=== PATIENT | male | born 1975 | race African-American/Black ===

== ENCOUNTER 2023-01-22 20:11 | Inpatient (IN) | payer SELFPAY ==
--- NOTE | ~2023-01-22 | CT_ITS ---
EXAMINATION: CT abdomen pelvis w con DATE: 01/22/2023 21:22 INDICATION: Left upper quadrant abdominal pain TECHNIQUE: Computed tomography (CT) of the abdomen and pelvis was performed with 100 CC Omnipaque 350 intravenous contrast. Automated exposure control and iterative reconstruction technique were employe d. Exam dose: 463.16 mGy-cm total exam DLP. COMPARISON: None. FINDINGS: Mild bilateral lower lobe atelectasis, primarily in the posteromedial left lower lobe. Normal heart size. No pericardial or pleural effusion. Small sliding hiatal hernia. Occasional up to 4.5 mm hepatic cysts. The gallbladder is unremarkable. No gallbladder wall thickenin g or pericholecystic fluid or fat stranding. No bile duct or pancreatic duct dilatation. No pancreati c mass lesion or calcification. There is a large geographic area of diminished attenuation of the spleen with relatively linear brian ns suggesting possible infarction. Normal morphology of the adrenal glands. There are several wedge shaped areas of diminished enhancement of the right kidney, which may indicat e right renal infarctions. Alternatively, acute pyelonephritis would be a consideration. There is scarring and volume loss of the upper pole right kidney suggests cyst with chronic right cyn lonephritis or past infarct. Occasional renal cysts, the largest on the right, measuring up to 14 mm. There is diffuse thickening of the urinary bladder wall, likely secondary to prostatomegaly. Cystitis is not excluded. Normal caliber of the abdominal aorta with minimal atherosclerotic change. No intraperitoneal or retr operitoneal or pelvic mass lesion or adenopathy or ascites is detected. Normal appendix. Diverticulosis of left and right colon; no evidence of diverticulitis. No bowel obstruction or intrap eritoneal free air is detected. Moderately severe degenerative disc disease L3-4. No suspicious osteolytic or osteoblastic lesions ar e noted. IMPRESSION: Large geographic area of diminished enhancement of the spleen suggesting infarct Infarcts versus acute pyelonephritis, right kidney Chronic pyelonephritis or infarct of upper pole right kidney Occasional small hepatic cysts Bilateral renal cysts Diverticulosis of the colon; no evidence of diverticulitis Normal appendix Small sliding hiatal hernia Bladder wall thickening which may be due to prostatomegaly; cystitis is not excluded Reviewed, dictated and finalized at [facility]. Reviewed, dictated and finalized at [facility]. IMPRESSION: Large geographic area of diminished enhancement of the spleen sugg esting infarct Infarcts versus acute pyelonephritis, right kidney Chronic pyelonephritis or infarct of upper pole right kidney Occasional small hepatic cysts Bilateral renal cysts Diverticulosis of the colon; no evidence of diverticulitis Normal appendix Small sliding hiatal hernia Bladder wall thickening which may be due to prostatomegaly; cystitis is not exc luded
--- NOTE | ~2023-01-22 | XR_ITS ---
XR chest 1V portable DATE: 01/22/2023 20:32 INDICATION: Left-sided pain TECHNIQUE: Portable upright AP chest on 01/22/2023 at 2031 hours COMPARISON: None FINDINGS: There is mild elevation left leaf of diaphragm and left lower lobe infiltrate/atelectasis. Remaining lung richards appear clear. Heart size appears within normal range. No hilar or mediastinal enlargement. No pleural effusion or p ulmonary vascular congestion or pneumothorax is detected. IMPRESSION: Left lower lobe infiltrate/atelectasis Reviewed, dictated and finalized at [facility].
[2023-01-22 20:13] VITALS: BP 137/77; PULSE 119; RESP 18; TEMP 36.7; O2SAT 99
--- NOTE | 2023-01-22 20:16 | ECG_ITS ---
Measurements Intervals [place] Rate: 54 P: 55 WA: 130 QRS: 48 QRSD: 99 T: 63 QT: 422 QTc: 404 Interpretive Statements SINUS BRADYCARDIA POSSIBLE LEFT ATRIAL ENLARGEMENT ST ELEVATION IN ANTERIOR LEADS- PROBABLY EARLY REPOLARIZATION ABNORMALITY BORDERLINE ST ABNORMALITY- HIGH LATERAL LEADS BORDERLINE ECG NO PREVIOUS ECG AVAILABLE FOR COMPARISON Electronically Signed On 01-23-2023 7:10:25 CDT by Xavi Sun D.O.
--- NOTE | 2023-01-22 20:16 | PC.NURSE ---
EKG completed at @[address] Yee
--- NOTE | 2023-01-22 20:32 | ED.GENADULT ---
HPI - General Adult General Chief complaint: Abdominal Pain Stated complaint: abdominal pain Time Seen by Provider: 01/22/23 20:15 History of Present Illness HPI narrative: This is a 47-year-old male presenting ED with a chief complaint of epigastric pain. Pain started acutely at 6:00 p.m. and is a sharp pain in the left upper quadrant. He says it radiates throughout his abdomen into his back. Ten out 10 intensity and constant. He has never experienced this pain before. Says it is better when he lies on his left side. No exacerbating symptoms. Patient says he is nauseous and tried to make himself vomit but was unsuccessful. He has had some chills. No chest pain difficulty breathing or diarrhea. Patient smokes a marijuana frequently. Related Data Allergies Allergy/AdvReac Type Severity Reaction Status Date / Time No Known Allergies Allergy Verified 01/22/23 20:50 Exam Narrative: APPEARANCE: patient is laying on his left side. he appears uncomfortable. Head: atraumatic. EYES: EOMI, NOSE: Atraumatic NECK: Trachea midline RESPIRATORY: No increased rate of breathing, clear to auscultation CARDIOVASCULAR: RRR, vital signs are noted 120 in triage on my exam his heart rate is 60. ABDOMINAL: abdomen is soft with tenderness in the epigastric area. L Cva tenderness MUSCULOSKELETAl: No obvious deformities NEURO: Alert. Moving 4/4 extremities SKIN:: Warm, dry. Normal color PSYCHIATRIC: Anxious Course Vital Signs Vital signs: Vital Signs Temperature 98.1 F 01/22/23 20:13 Pulse Rate 119 H 01/22/23 20:13 Respiratory Rate 18 01/22/23 20:13 Blood Pressure 137/77 01/22/23 20:13 Pulse Oximetry 99 01/22/23 20:13 Oxygen Delivery Room Air 01/22/23 20:13 Temperature 98.1 F 01/22/23 20:13 Pulse Rate 78 01/22/23 23:09 Respiratory Rate 15 01/22/23 23:09 Blood Pressure 148/83 H 01/22/23 23:09 Pulse Oximetry 98 01/22/23 23:09 Oxygen Delivery Room Air 01/22/23 20:13 Medical Decision Making [facility] Narrative Medical decision making narrative: -Presentation: 47-year-old male presenting with epigastric pain. There seems to be a strong anxiety component associated with his symptoms. Patient will be given symptomatic treatment. Lab work and CT abdomen pelvis have been ordered. -DDX includes but is not limited to: gastritis/PUD, splenic infarct, Cyclic vomiting, pyelonephritis -Co-morbidities complicating care: hypertension, frequent marijuana use -Social determinants of health: patient works at a [employer] the lives with his mother -External Chart Review: none -Hx from independent Sources: EMS report -Independent interpretation of studies: CBC showed white count of 14. Hemoglobin normal. Metabolic panel within normal limits. Chest x-ray atelectasis in left lower lobe. UA negative. CT abdomen pelvis: ?Large geographic area of diminished enhancement of the spleen suggesting infarct Infarcts versus acute pyelonephritis, right kidney Chronic pyelonephritis or infarct of upper pole right kidney Occasional small hepatic cysts Bilateral renal cysts Diverticulosis of the colon; no evidence of diverticulitis Normal appendix Small sliding hiatal hernia Bladder wall thickening which may be due to prostatomegaly; cystitis is not excluded patient given Dilaudid for pain control. Blood cultures ordered. Independent EKG interpretation: Rhythm [sinus], Rate [54], [place] -[normal], [place] -[normal], QRS [narrow], QTC [normal], T waves -[negative for concerning inversions], ST Segments - [Negative for concerning elevations] Final interpretations: Sinus Jacob -Discussion of Management/Consultants:Dr. Potter - Hospitalist -Dx tests considered but not ordered: none -Procedures: none -Interventions: 2 L normal saline, Pepcid, Zofran, Haldol, Dilaudid -Shared decision making / Disposition: patient will be admitted to hospital for management of his pain into evaluate f
[2023-01-22 20:39] LABS: Basophils Absolute Auto 0.1 K/mm3 (0.0-0.1); Basophils Percent Auto 0.4 % (0.2-1.2); Eosinophils Absolute Auto 0.1 K/mm3 (0-0.3); Eosinophils Percent Auto 0.6 % (0-4.4); Hematocrit 43.7 % (42.0-52.0); Hemoglobin 14.1 g/dL (14.0-18.0); Immature Granulocyte Absolute 0.06 K/mm3 (0.00-0.031); Immature Granulocyte Percent A 0.4 % (0-0.5); Lymphocytes Absolute Auto 2.26 K/mm3 (0.9-3.2); Mean Corpuscular HGB Conc 32.3 g/dl (32-36); Mean Platelet Volume 9.8 fl (7.4-10.4); Monocytes Absolute Auto 0.8 K/mm3 (0.1-0.6); Monocytes Percent Auto 5.7 % (2.6-8.5); Neutrophils Absolute Auto 10.8 K/mm3 (1.3-6.7); Neutrophils Percent Auto 76.9 % (45.5-73.1); Platelet Count Result 335 k/mm3 (150-375); Red Cell Distribution Width 13.2 % (11.5-14.5); White Blood Count 14.1 K/mm3 (4.5-10.0)
[2023-01-22 20:49] LABS: Alanine Aminotransferase 20 U/L (6-50); Albumin Level 4.3 g/dL (3.5-5.1); Alkaline Phosphatase 64 U/L (38-126); Anion Gap 6 mmol/L (8-16); Aspartate Amino Transferase 26 U/L (17-59); Bilirubin,Total 0.5 mg/dL (0.2-1.3); Blood Urea Nitrogen 23 mg/dL (9-20); Calcium 9.3 mg/dL (8.4-10.2); Carbon Dioxide 27 mmol/L (22-30); Chloride 105 mmol/L (98-107); Estimated Glomerular Filt Rate > 60; Glucose 106 mg/dL (65-110); Lipase 74 U/L (23-300); Magnesium 1.9 mg/dL (1.6-2.3); Potassium 4.1 mmol/L (3.4-5.0); Sodium 138 mmol/L (137-145)
[2023-01-22] MEDS: FAMOTIDINE 20 MG/2 ML VIAL IV PUSH (20:51)
[2023-01-22] MEDS: SODIUM CHLORIDE 0.9% IV 2,000 ML 999 ML IV CONT (20:51)
[2023-01-22] MEDS: ONDANSETRON INJ 4 MG/2 ML VIAL IV PUSH (20:51)
[2023-01-22] MEDS: HALOPERIDOL LACTATE 5 MG/ML VIAL IM (21:03)
[2023-01-22] MEDS: HYDROmorphone HCL INJ (*CRX) 1 MG/ML SYR 0.5 MG IV PUSH (22:18)
--- NOTE | 2023-01-22 22:25 | PM.IMHP ---
H&P: HPI History of Present Illness Date/Time: 01/22/23 22:25 Chief Complaint: Diffuse abdominal pain. Narrative: This is a 47-year-old gentleman with a past medical history including but not not limited to chronic migraine, marijuana use, who is presenting ED with a chief complaint of epigastric pain.? Pain started acutely at 6:00 p.m. and is a sharp pain in the left upper quadrant.? He says it radiates throughout his abdomen into his back.? The pain is rated 10/10 intensity and constant.? He has never experienced this pain before.? Says it is better when he lies on his left side.? No exacerbating symptoms.? Patient says he is nauseous and tried to make himself vomit but was unsuccessful.? He has had some chills.? No chest pain difficulty breathing or diarrhea.? Patient smokes a marijuana frequently. On arrival to the ED the patient is stable and afebrile with a temperature of 98.1? F , pulse rate 119, respiration 18, blood pressure 137/77, pulse ox 99% on room air. He CBC shows a WBC of 14.1, hemoglobin 14.1, hematocrit 43.7, platelet count 335. His chemistry shows a sodium of 138, potassium 4.1, chloride 105, bicarb 27, BUN [address] of the abdomen and pelvis shows a large area of diminished enhancement of the spleen suggesting infarcts; infarcts of the right kidney versus acute pyelonephritis.. Review of Systems Review of Systems: CONSTITUTIONAL: Negative for any fevers, chills, night sweats, tiredness, fatigue, malaise, anorexia or weight loss. CARDIOVASCULAR: Negative for chest pain, palpitations, dizziness, orthopnea or lower extremity edema. RESPIRATORY: Negative for shortness of breath, cough, wheezing, sputum. GASTROINTESTINAL: Positive for diffuse abdominal pain. Negative for nausea vomiting or diarrhea. GENITOURINARY: Negative for frequency, nocturia, dysuria, hematuria. GYNECOLOGIC: Negative for abnormal bleeding. HEMATOLOGIC: Negative for any abnormal bleeding or bruising. MUSCULOSKELETAL: Negative for joint swelling, stiffness or pain. SKIN: Negative for rashes, eruptions, lesions or dryness. NEUROLOGIC: Negative for any focal neurologic complaints. PSYCHIATRIC: Negative for anxiety, panic, depression. [facility] Past Medical History Medical History HTN (hypertension) Social History Social History Smoking packs per day: 1 Smoking cigarettes per day: 20.0 Smoking status: Current every day smoker Tobacco type: cigarettes Alcohol intake: never Substance use type: marijuana Lack of Transportation: No Lack of Food: Never True Current Housing: I Have Housing Concerned About Future Housing: No Difficulty Paying Gas/Electric Bills: No Difficulty Paying for Meds: No Currently Unemployed: No Education: High School Diploma/GED Difficulty w/ Childcare or Family Care: No Spiritual care concerns: No Meds Home Medications and Allergies Home Medications Medication Instructions Recorded Confirmed Type lisinopril 20 1 tablet PO DAILY 01/23/23 01/23/23 History mg-hydrochlorothiazide 25 mg tablet Allergies Allergy/AdvReac Type Severity Reaction Status Date / Time No Known Allergies Allergy Verified 01/22/23 20:50 Vital Signs Vital Signs - 24 hr 01/22/23 20:13 Temperature 98.1 F Pulse Rate 119 H Respiratory Rate 18 Blood Pressure 137/77 Pulse Oximetry 99 Oxygen Delivery Room Air Exam Narrative: GENERAL: The patient is alert and oriented, in no apparent distress. He is pleasant and conversant in full sentences. HEENT: Pupils are equally round and briskly reactive to light. Extraocular muscles are intact. Oral mucous membranes are moist without lesions. NECK: The patient has no noted JVD. No adenopathy is appreciated. CHEST/LUNGS: Lungs are clear bilaterally without rhonchi, rales, or wheezes. There is no subcutaneous air appreciated. There i
[2023-01-22 22:55] LABS: Lactate Dehydrogenase 165 U/L (120-246)
[2023-01-22 22:58] LABS: Appearance Urine Clear (Clear); Bacteria Urine None Seen /hpf; Bilirubin Urine Negative (Negative); Blood Urine Negative (Negative); Color Urine Yellow (Yellow); Glucose Urine UA Negative (Negative); Ketones Urine Trace mg/dL (Negative); Leukocyte Esterase Ur Negative LEU/UL (Negative); Nitrate Urine Negative (Negative); Non Pathogenic Casts 0-2; Protein Urine Trace mg/dL (Negative); RBC Urine 0-2 /hpf (0-2); Squamous Epithelial Cell Urine None seen /hpf (Few); WBC Urine 0-5 /hpf; pH Urine 7.5 (5.0-9.0)
[2023-01-22 23:05] LABS: Specific Grav Ur 1.062 (1.001-1.035)
[2023-01-22 23:06] LABS: Add Urine Microscopic? YES
[2023-01-22 23:09] VITALS: BP 148/83; PULSE 78; RESP 15; O2SAT 98
[2023-01-22 23:37] LABS: Amphetamine Screen Urine Negative (Negative); Barbiturate Screen Urine Negative (Negative); Benzodiazepines Screen Urine Negative (Negative); Cannabinoid Screen Urine Positive (Negative); Cocaine Screen Urine Positive (Negative); Methadone Screen Urine Negative (Negative); Opiate Screen Urine Negative (Negative); Phencyclidine Screen Urine Negative (Negative)
[2023-01-22 23:46] VITALS: BP 142/83; PULSE 57; RESP 16
[2023-01-23] VITALS (13 sets, daily range): BP systolic 132–174; BP diastolic 77–94; PULSE 53–85; RESP 14–21; TEMP 36.3–37; O2SAT 98–100; BMI 25.0
--- NOTE | 2023-01-23 | ECHO_ITS ---
Patient Info Name: Felix Jacobs Age: 47 years : 1975 Gender: Male Ht: 69 in Wt: 169 lbs BSA: 1.94 m2 HR: 53 bpm BP: 132 / 77 mmHg Heart Rhythm: Sinus Rhythm Technical Quality: Good Exam Date: 01/23/2023 8:19 AM Exam Location: [facility] Patient Status: Outpatient Admit Date: 01/22/2023 Staff Ordering Physician: Lise Marinelli APRN Line Director: Ella Baig RDCS Attending Provider: Shaylee Potter MD Referring Physician: Isis KEMP; Exam Type: CA echo doppler color flow Study Info Indications - rule out vegatation, multiple thrombi Complete two-dimensional, color flow and Doppler transthoracic echocardiogram is performed. Summary 1. Complete two-dimensional, color flow and Doppler transthoracic echocardiogram is performed. 2. Left ventricular chamber dimension is normal. 3. Left ventricular systolic function is normal, estimated at 65-70%. 4. There is mildly increased left ventricular wall thickness. 5. The left ventricular diastolic function is normal. 6. Left atrial chamber dimension is mildly enlarged. 7. There is mild mitral valve regurgitation. 8. There is mild tricuspid valve regurgitation. 9. Mild pulmonary hypertension, estimated pulmonary arterial systolic pressure is 35 mmHg. Left Ventricle Left ventricular chamber dimension is normal. Left ventricular systolic function is normal, estimated at 65-70%. There is mildly increased left ventricular wall thickness. The left ventricular diastolic function is normal. Right Ventricle Right ventricular chamber dimension is normal. Right ventricular systolic function is normal. Left Atria Left atrial chamber dimension is mildly enlarged. Right Atria Right atrial chamber dimension is normal. Atrial Septum Intact interatrial septum visualized by color flow imaging. Aortic Valve The aortic valve is trileaflet. There is no aortic valve sclerosis. There is no aortic valve stenosis. There is trace aortic valve regurgitation. Pulmonic Valve The pulmonic valve is normal. There is no pulmonic valve stenosis. There is trace pulmonic regurgitation. Mitral Valve The mitral valve has normal leaflets. There is no mitral valve stenosis. There is mild mitral valve regurgitation. Tricuspid Valve The tricuspid valve leaflets are normal. There is no significant tricuspid valve stenosis. There is mild tricuspid valve regurgitation. Mild pulmonary hypertension, estimated pulmonary arterial systolic pressure is 35 mmHg. Pericardium/Pleural The pericardium appears normal. There is trivial pericardial effusion. Inferior Vena Cava Normal inferior vena cava with >50% collapse upon inspiration consistent with normal right atrial pressure, 10 mmHg. Aorta The aortic root size at the sinus of Valsalva is normal. Left Ventricular Outflow Tract Name Value Normal LVOT 2D LVOT Diameter 2.0 cm LVOT Doppler LVOT Peak Gradient 5 mmHg LVOT Mean Gradient 3 mmHg LVOT VTI 23 cm LVOT VTI/AV VTI Ratio 0.7 LVOT Stroke Volume 70 ml LVOT CO 3.2 l
--- NOTE | 2023-01-23 00:15 | ADMGEN ---
This patient, Felix Jacobs, was admitted to 2 Medical Room 247-. Patient/family oriented to hospital policies and general routines including ID bracelet, bed and alarms, visiting hours, pain management, procedures, bathroom and other care routines, personal items, smoking policy, room service/diet, and visiting hours. Information on how to activate the Rapid Response Team has been discussed. Patient/Family are encouraged to report perceived risks to care and to ask questions if they do not understand what they are told or what they should do.
[2023-01-23 06:15] LABS: Anion Gap 3 mmol/L (8-16); Blood Urea Nitrogen 20 mg/dL (9-20); Carbon Dioxide 25 mmol/L (22-30); Chloride 109 mmol/L (98-107); Estimated CRCL calculation 91 ml/min; Estimated Glomerular Filt Rate > 60; Glucose 88 mg/dL (65-110); Potassium 4.4 mmol/L (3.4-5.0); Sodium 137 mmol/L (137-145)
--- NOTE | 2023-01-23 07:00 | PM.IMPN ---
Progress Note: A&P Assessment and Plan (1) Splenic infarct: Code(s): D73.5 - Infarction of spleen Status: Acute Assessment and Plan: -Need to investigate etiology of multiple thrombi. Is this hematological vs a-fib vs septic emboli vs prothrombotic state? -EKG is sinus bradycardia -Will obtain ECHO and labs to rule out embolic vs thrombotic -loaded with 325 mg of ASA now on 81 mg PO daily (2) Renal infarct: Code(s): N28.0 - Ischemia and infarction of kidney Status: Acute Assessment and Plan: -CR stable 0.90 -possibly an old infarct -Consult nephrology, apprecaite recs (3) Leukocytosis: Code(s): D72.829 - Elevated white blood cell count, unspecified Status: Acute Assessment and Plan: -WBC 14 initially and now 10. -afebrile -Will trend labs and should a leukocytosis persist may consider starting abx for potential splenic abscess. But this is less likely if ECHO is negative for endocarditis. (4) HTN (hypertension): Code(s): I10 - Essential (primary) hypertension Status: Acute Assessment and Plan: -Controlled on home medications. -blood pressures reviewed. -restarted home blood pressure medication Subjective Date/time seen: 01/23/23 07:00 Interval history: This is a 47-year-old male who presents to the ER last night with a complaint of epigastric pain. Pain is described as being sharp to the left upper quadrant and radiates to his abdomen into his back. He says that that is 10/10. He is having some nausea but no vomiting. He has a past medical history of hypertension controlled with hydrochlorothiazide/lisinopril and depression with suicide attempts. He does report smoking marijuana daily and his UDS was positive for cocaine as well. Initial workup in the ER with CT abdomen and pelvis shows a large geographic area of diminished enhancement of the spleen suggesting infarct, also infarct versus acute pyelonephritis to the right kidney. Nephrology was consulted to assist in management of renal infarct. There is also concerns for possible splenic abscess given his presenting symptoms and a mild leukocytosis. Will also workup potential causes for multiple thrombi. 01/23: I saw the patient at the bedside today with and children present. He says that he feels better this morning than he did when he 1st came into the ER. He is not really having any pain. He just finished having his echo done. He said that for the past couple days he was not feeling very well at work. He reports chills, weakness, and fatigue. And then intermittent left upper quadrant abdominal pain. He denies headache, dizziness, chest pain, shortness of breath, palpitations, nausea, vomiting. Says that his last bowel movement was yesterday and it was normal for him. He is urinating as normal. He denies any musculoskeletal complaints, denies any open wounds or sores. Review of Systems Review of Systems: All systems reviewed & are unremarkable except as noted in HPI and below Exam Narrative: General: well-nourished, well-appearing 47-year-old male, laying in bed, appears anxious. Neuro: awake, alert and oriented x4, speech clear, no focal neuro deficits noted HEENMT: normocephalic, atraumatic, EOMI, sclerae anicteric, moist oral mucosa Respiratory: Clear to auscultation bilaterally without crackles, rhonchi or wheezes, nonlabored breathing Cardio: regular rate, regular rhythm with S1-S2 Abdomen: nondistended, normoactive bowel sounds, soft, mild tenderness to palpation of LUQ Extremities: no edema, erythema, or tenderness to palpation, DP pulses 2+ bilaterally Skin: no rashes or lesions, warm and dry Psych: appropriate mood and affect, judgment and insight intact Objective Data Vital Signs Vital Signs: Vital Signs - 24 hr 01/22/23 20:13 01/22/23 23:09 01/22/23 23:46 Temperature 98.1 F Pulse Rate 119 H 78 57 L Respiratory Rate 18 15 16 Blood Pressure
[2023-01-23 07:17] LABS: Basophils Absolute Auto 0.1 K/mm3 (0.0-0.1); Basophils Percent Auto 0.5 % (0.2-1.2); Eosinophils Absolute Auto 0.2 K/mm3 (0-0.3); Eosinophils Percent Auto 1.5 % (0-4.4); Hematocrit 40.4 % (42.0-52.0); Hemoglobin 13.3 g/dL (14.0-18.0); Immature Granulocyte Absolute 0.03 K/mm3 (0.00-0.031); Immature Granulocyte Percent A 0.3 % (0-0.5); Lymphocytes Absolute Auto 2.79 K/mm3 (0.9-3.2); Lymphocytes Percent Auto 25.6 % (18.3-44.2); Mean Corpuscular HGB Conc 32.9 g/dl (32-36); Mean Corpuscular Hemoglobin 30.1 pg (26-34); Mean Corpuscular Volume 91.4 fl (80-100); Mean Platelet Volume 10.3 fl (7.4-10.4); Monocytes Absolute Auto 0.7 K/mm3 (0.1-0.6); Monocytes Percent Auto 6.8 % (2.6-8.5); Neutrophils Absolute Auto 7.1 K/mm3 (1.3-6.7); Neutrophils Percent Auto 65.3 % (45.5-73.1); Platelet Count Result 298 k/mm3 (150-375); Red Blood Count 4.42 M/mm3 (4.6-6.20); Red Cell Distribution Width 13.2 % (11.5-14.5); White Blood Count 10.9 K/mm3 (4.5-10.0)
[2023-01-23 07:23] LABS: Cholesterol 118 mg/dL (0-200); HDL Direct 34 mg/dL; Triglycerides 130 mg/dL (<150)
[2023-01-23 07:34] LABS: LDL Cholesterol Direct 53 mg/dL
[2023-01-23 08:20] LABS: INR 1.1; Prothrombin Time 14.2 Seconds (11.1-14.7)
[2023-01-23 08:21] LABS: Partial Thromboplastin Time 27.5 SECONDS (22.3-36.8)
[2023-01-23 08:33] LABS: Fibrinogen 281 mg/dl (215-510)
[2023-01-23] MEDS: ASPIRIN 81 MG ENTERIC TABLET PO (08:46)
--- NOTE | 2023-01-23 12:09 | PM.CNNEP ---
Assessment and Plan Assessment and plan (1) Renal infarct: Code(s): N28.0 - Ischemia and infarction of kidney Status: Acute Assessment and Plan: as noted by admission imaging etiology unclear possibly related to cocaine use (and associated systemic vasoconstriction?) concern that this maybe embolic as well however, cannot discount the possibility of thrombotic state follow-up on Echo r/o nephrotic range proteinuria hypercoagulable workup (2) Splenic infarct: Code(s): D73.5 - Infarction of spleen Status: Acute Assessment and Plan: related to same issue as #1 (?) follow-up on pending testing (3) HTN (hypertension): Code(s): I10 - Essential (primary) hypertension Status: Acute Assessment and Plan: reasonable control at this time follow trend of hemodynamics I will continue follow the patient with you while remains hospitalized to make further recommendations as necessary. Thank you for allowing me to participate in the care of this patient. History of Present Illness Reason for Consult Consult date: 01/23/23 Reason for consult: Other (renal infarction) Chief Complaint Chief complaint: spendic infarct History of Present Illness Narrative: The patient is a 47-year-old male with a past medical history as outlined below who presented to [facility] Emergency Room with complaints of abdominal pain. The patient states that his abdominal pain started around 6:00 p.m. on the day of admission was described as a sharp sensation in the left upper quadrant that radiates through his abdomen into his back. At its worst severity, he rated attended 10. He localized the abdominal pain in the epigastric region and reports that he has never had a pain like this before in the past. Alleviating factors included laying on his left side and nothing specifically seem to make any worse. He had associated nausea but did not have any vomiting. Given the severity of this pain, he presented to the ER for further assessment. Workup and evaluation emergency room demonstrated the patient to be hemodynamically stable and in mild/moderate distress secondary to the pain. Routine blood tests were significant for a mildly elevated white blood cell count and relatively normal renal function with no critical electrolyte abnormalities. Given the severity of his abdominal pain, he had a CT scan of the abdomen pelvis which demonstrated a large area of diminished enhancement of the spleen suggesting infarction as well as infarction of the right kidney although the possibility of an acute pyelonephritis could not be ruled out. His urinalysis was relatively benign with regard to the possibility of a urinary tract infection. Nevertheless, given these acute changes/findings, he was admitted the hospital for further evaluation and therapy. Renal consultation was requested due to his right kidney infarction. In spite of this finding, his overall renal function appears to be well preserved and he has no other acute complications from this issue. The likelihood of acute pyelonephritis seems less likely as his urinalysis appears to be relatively bland. His pain appears to have subsided since his admission as well. He reports no history with regard to DVTs, PEs, clots, or any type of hypercoagulable state. He does admit to marijuana use and his urine drug screen was positive for cocaine. No other issues or problems overnight early this morning. Currently, at the time my visit, he appears to be in no acute distress. Review of Systems Review of Systems: As per HPI. [facility] Past Medical History Medical History HTN (hypertension) Social History Social History Smoking packs per day: 1 Smoking cigarettes per day: 20.0 Smoking status: Current every day smoker Tobacco t
[2023-01-23] MEDS: hydroCHLOROthiazide 25 MG TABLET PO (16:42)
[2023-01-23] MEDS: lisinopriL 20 MG TABLET PO (16:42)
[2023-01-23] MEDS: ACETAMINOPHEN 325 MG TABLET 650 MG PO (18:49)
[2023-01-24] VITALS: PULSE 63
[2023-01-24 04:00] VITALS: PULSE 56
[2023-01-24 05:02] LABS: Basophils Absolute Auto 0.1 K/mm3 (0.0-0.1); Basophils Percent Auto 0.7 % (0.2-1.2); Eosinophils Absolute Auto 0.3 K/mm3 (0-0.3); Eosinophils Percent Auto 2.7 % (0-4.4); Hematocrit 43.6 % (42.0-52.0); Hemoglobin 14.1 g/dL (14.0-18.0); Immature Granulocyte Absolute 0.03 K/mm3 (0.00-0.031); Immature Granulocyte Percent A 0.3 % (0-0.5); Lymphocytes Absolute Auto 2.64 K/mm3 (0.9-3.2); Lymphocytes Percent Auto 26.5 % (18.3-44.2); Mean Corpuscular HGB Conc 32.3 g/dl (32-36); Mean Corpuscular Hemoglobin 29.4 pg (26-34); Mean Platelet Volume 10.1 fl (7.4-10.4); Monocytes Absolute Auto 0.8 K/mm3 (0.1-0.6); Monocytes Percent Auto 7.9 % (2.6-8.5); Neutrophils Absolute Auto 6.2 K/mm3 (1.3-6.7); Neutrophils Percent Auto 61.9 % (45.5-73.1); Platelet Count Result 254 k/mm3 (150-375); Red Blood Count 4.79 M/mm3 (4.6-6.20); Red Cell Distribution Width 12.8 % (11.5-14.5)
[2023-01-24 05:13] LABS: Alanine Aminotransferase 19 U/L (6-50); Albumin Level 3.8 g/dL (3.5-5.1); Alkaline Phosphatase 58 U/L (38-126); Anion Gap 4 mmol/L (8-16); Aspartate Amino Transferase 36 U/L (17-59); Bilirubin,Total 0.5 mg/dL (0.2-1.3); Blood Urea Nitrogen 20 mg/dL (9-20); Carbon Dioxide 28 mmol/L (22-30); Chloride 104 mmol/L (98-107); Estimated CRCL calculation 82 ml/min; Estimated Glomerular Filt Rate > 60; Glucose 90 mg/dL (65-110); Potassium 4.3 mmol/L (3.4-5.0); Sodium 136 mmol/L (137-145)
[2023-01-24 05:25] VITALS: BP 133/72; PULSE 57; RESP 17; TEMP 36.8; O2SAT 100
[2023-01-24 08:00] VITALS: PULSE 55
[2023-01-24 08:09] VITALS: RESP 18; O2SAT 100
[2023-01-24] MEDS: lisinopriL 20 MG TABLET PO (08:09)
[2023-01-24] MEDS: hydroCHLOROthiazide 25 MG TABLET PO (08:09)
[2023-01-24] MEDS: ASPIRIN 81 MG ENTERIC TABLET PO (08:09)
[2023-01-24 12:03] VITALS: PULSE 55
--- NOTE | 2023-01-24 14:00 | PM.DS ---
DS: Admitting Diagnosis Discharge Date 01/24/2023 Admitting Diagnosis Renal Infarct Splenic Infarct Leukocytosis HTN UMER DS: Discharge Diagnosis Discharge Diagnosis (1) Renal infarct: Code(s): N28.0 - Ischemia and infarction of kidney Status: Acute Assessment and Plan: Suspected to be related to cocaine use causing vasoconstriction though clotting studies remain pending. (2) Splenic infarct: Code(s): D73.5 - Infarction of spleen Status: Acute Assessment and Plan: Suspected to be related to cocaine use causing vasoconstriction though clotting studies remain pending. (3) Leukocytosis: Code(s): D72.829 - Elevated white blood cell count, unspecified Status: Acute Assessment and Plan: Likely reactive no signs of infection no fevers and improved without intervention (4) UMER (acute kidney injury): Code(s): N17.9 - Acute kidney failure, unspecified Status: Acute Assessment and Plan: Improved with initial IV fluids and no further intervention (5) HTN (hypertension): Code(s): I10 - Essential (primary) hypertension Status: Acute Assessment and Plan: Stable, continue lisinopril/HCTZ at home (6) Cocaine abuse: Code(s): F14.10 - Cocaine abuse, uncomplicated Status: Acute Assessment and Plan: Possibly the cause of vasoconstriction leading to renal and splenic infarct. Plan Patient reports that he feels well except a little bit discomfort upper left abdomen when he eats. Plan is to discharge home with instructions ceasing cocaine use. Clotting studies remain in process will be monitored. DS: Summary Hospital Course Hospital Course: This is a 47-year-old male who presents to the ER last night with a complaint of epigastric pain.? Pain is described as being sharp to the left upper quadrant and radiates to his abdomen into his back.? He says that that is 10/10.? He is having some nausea but no vomiting.? He has a past medical history of hypertension controlled with hydrochlorothiazide/lisinopril and depression with suicide attempts. He does report smoking marijuana daily and his UDS was positive for cocaine as well.? Initial workup in the ER with CT abdomen and pelvis shows a large geographic area of diminished enhancement of the spleen suggesting infarct, also infarct versus acute pyelonephritis to the right kidney.? Nephrology was consulted to assist in management of renal infarct.? There is also concerns for possible splenic abscess given his presenting symptoms and a mild leukocytosis. Will also workup potential causes for multiple thrombi. 01/23:? I saw the patient at the bedside today with and children present.? He says that he feels better this morning than he did when he 1st came into the ER.? He is not really having any pain.? He just finished having his echo done.? He said that for the past couple days he was not feeling very well at work.? He reports chills, weakness, and fatigue.? And then intermittent left upper quadrant abdominal pain.? He denies headache, dizziness, chest pain, shortness of breath, palpitations, nausea, vomiting.? Says that his last bowel movement was yesterday and it was normal for him.? He is urinating as normal.? He denies any musculoskeletal complaints, denies any open wounds or sores. 01/24: Patient states this morning that he feels good newly back to normal and that he wants to be discharged home. Patient states he has no nausea or vomiting and no abdominal tenderness to palpation. He reports mild left upper quadrant pain with eating but otherwise denies any symptoms or ongoing complaints. Patient reports that he is voiding normally has urinary discomfort. Time spent discussing smoking cessation with patient: 3 to 10 minutes Status at Discharge Cognitive/behavioral status at discharge: Awake alert and oriented Functional status at discharge: independent ambulation Time Spent with Patient Time atte
--- NOTE | 2023-01-29 13:18 | PC.NURSE ---
Protein C functional activity is WNL at 104 Protein C activity- 72.
[2023-01-29 18:23] LABS: Factor V (Leiden) Mutation NEGATIVE
[2023-01-30 16:27] LABS: Anti Cardio Antibody IgM 2.3 MPL-U/mL (<20.0); Anti Cardiolipin Antibody IgA <2.0 APL-U/mL (<20.0); Anti Cardiolipin Antibody IgG <2.0 GPL-U/mL (<20.0); PS/PT AB IgG <9 U (<=30); PS/PT AB IgM 10 U (<=30)
--- NOTE | 2023-01-31 08:14 | PC.NURSE ---
Factor V Leiden is negative.
== END 2023-01-24 14:45 | disposition home or self-care (01) | DRG 663 ==
LOC: ANHED 22:13 → ANH2MED 23:39
PROVIDERS: Nurse Practitioner Acute Care; Admitting Provider Internal Medicine; Emergency Provider Emergency Medicine; Visit Provider Nurse Practitioner
DX: D73.5 Infarction of spleen (principal); N17.9 Acute kidney failure, unspecified; N28.0 Ischemia and infarction of kidney; I10 Essential (primary) hypertension; F14.10 Cocaine abuse, uncomplicated; F12.90 Cannabis use, unspecified, uncomplicated
CPT/HCPCS: 36415; 71045; 74177; 80048; 80053; 80061; 80307; 81001; 81241; 83615; 83690; 83735; 85025; 85240; 85250; 85303; 85306; 85384; 85610; 85660; 85730; 86146; 87040; 93005; 93306; 96361; 96372; 96374; 96375; 99285; A9270; G0378; J1170; J1630; J2405; J7030; Q9967

== ENCOUNTER 2024-07-07 21:32 | Inpatient (IN) | payer OTHER, SELFPAY ==
--- NOTE | ~2024-07-07 | XR_ITS ---
EXAMINATION: XR chest 1V portable DATE: 07/07/2024 23:09 INDICATION: Weakness. TECHNIQUE: A single frontal view of the chest was obtained. COMPARISON: Chest single view 01/22/2023, CT abdomen and pelvis 01/22/2023 FINDINGS: There is no pneumonia, pleural effusion, or pneumothorax. The heart size is normal. There i s an old healed fracture of left fifth rib. IMPRESSION: 1. No acute cardiopulmonary disease. Reviewed, dictated and finalized at location A. HOLOGICAL AIDE
--- NOTE | ~2024-07-07 | MR_ITS ---
EXAMINATION: MR brain/brain stem wo/w con DATE: 07/08/2024 12:30 INDICATION: Slurred speech. Prior right middle cerebral artery infarct. TECHNIQUE: Magnetic resonance imaging (MRI) of the brain and brainstem was performed without intraven ous contrast. Sequences included sagittal and axial T1-weighted SE, axial diffusion-weighted FS SE, a xial 3D SWAN, axial T2-weighted FLAIR, and axial T2-weighted FSE. Postcontrast axial and coronal T1-w eighted SE was obtained. Apparent diffusion coefficient (ADC) maps were created. COMPARISON: None. FINDINGS: There are a few small chronic infarcts with signal loss on susceptibility weighted imaging and curvil inear T1 hyperintense laminar necrosis in the right frontal lobe, anterior right temporal lobe, right temporal occipital region and in the right frontoparietal region. There is some associate underlying white matter T2 hyperintensity associated with these regions of infarct. There are no areas of restr icted diffusion to suggest acute infarction. There is a left posterior fossa arachnoid cyst which exe rts mass effect upon the posterior left cerebellum and follow CSF signal on all sequences. No acute i ntracranial hemorrhage or abnormal other intracranial mass lesion. There are a few additional scatter ed small foci of nonspecific increased T2-weighted signal intensity in the cerebral white matter, pre dominantly involving the deep and periventricular white matter. The ventricles are symmetric and nor mal in size. There are no abnormal extra-axial fluid collections. Flow voids are seen in the cerebral arteries on the T2-weighted sequences consistent with their expected patency. Visualized orbits and soft tissues are unremarkable. Mild mucosal thickening in the bilateral ethmoid sinuses. There are no areas of abnormal enhancement on the post contrast images. IMPRESSION: 1. Multiple small cortical with laminar necrosis in the right cerebral hemisphere in the right middle cerebral artery vascular distribution. No evident acute intracranial process. Reviewed, dictated and finalized at location A. [employer] IMPRESSION: 1. Multiple small cortical with laminar necrosis in the right cerebral hemisphe re in the right middle cerebral artery vascular distribution. No evident acute intracranial process.
--- NOTE | ~2024-07-07 | CT_ITS ---
CT ANGIOGRAM NECK AND HEAD History: Speech difficulty. Technique: Axial noncontrast imaging of the brain was performed. Serial spiral axial images through t he head and neck were then obtained during arterial phase IV injection of 100 cc of Omnipaque 350. 3- D postprocessing and MIP images were then reconstructed on the remote workstation. Dose reduction alondra hnique was used on this scan by utilizing automated exposure control and iterative reconstruction alondra hnique. The dose-length product (DLP) was 1693.07 mGy-cm. CTA neck findings: Bilateral vertebral arteries are patent. Bilateral common carotid, internal carot id, and external carotid arteries are patent. No large vessel occlusion or stenosis. No aneurysm. The proximal right internal carotid artery demonstrates 0% stenosis relative to the normal distal artery lumen diameter. The proximal left internal carotid artery demonstrates 0% stenosis relative to the n ormal distal artery lumen diameter. CTA head findings: Distal vertebral arteries, basilar artery, and posterior cerebral arteries are pat ent. Distal internal carotid arteries, middle cerebral arteries, and anterior cerebral arteries are p atent. No large vessel occlusion or stenosis. No aneurysm. Axial noncontrast imaging of the brain demonstrates probable chronic infarcts in the right temporal l obe encephalomalacia chronic infarct in the right frontal lobe. No mass effect or midline shift. Prob able arachnoid cyst in the left posterior fossa. No intracranial hemorrhage. Paranasal sinuses and ma stoid air cells are clear. Calvarium intact. Impression: No large vessel occlusion or stenosis. No significant vascular abnormality seen. Probable chronic infarcts in the right temporal lobe and right frontal lobe. Probable left posterior fossa arachnoid cyst. Reviewed, dictated and finalized at location . NDER WORKER Impression: No large vessel occlusion or stenosis. No significant vascular abnormality seen . Probable chronic infarcts in the right temporal lobe and right frontal lobe. Probable left posterior fossa arachnoid cyst.
[2024-07-07 21:36] VITALS: BP 140/98; PULSE 78; RESP 16; TEMP 36.2; O2SAT 99
--- NOTE | 2024-07-07 22:53 | ECG_ITS ---
Test Date: 2024-07-07 23:02:23 Measurements Intervals [place] Rate: 64 P: 52 LA: 150 QRS: 42 QRSD: 87 T: 60 QT: 368 QTc: 381 Interpretive Statements SINUS RHYTHM NONSPECIFIC T-WAVE ABNORMALITY No previous ECG available for comparison Electronically Signed On 07-08-2024 16:13:23 [employer] by Christine Busch M.D.
[2024-07-07 23:19] LABS: Basophils Absolute Auto 0.1 K/mm3 (0.0-0.1); Basophils Percent Auto 0.8 % (0.2-1.2); Eosinophils Absolute Auto 0.3 K/mm3 (0-0.3); Eosinophils Percent Auto 4.7 % (0-4.4); Hematocrit 43.2 % (42.0-52.0); Hemoglobin 14.1 g/dL (14.0-18.0); Immature Granulocyte Absolute 0.02 K/mm3 (0.00-0.031); Immature Granulocyte Percent A 0.3 % (0-0.5); Lymphocytes Absolute Auto 2.36 K/mm3 (0.9-3.2); Lymphocytes Percent Auto 33.4 % (18.3-44.2); Mean Corpuscular HGB Conc 32.6 g/dl (32-36); Mean Corpuscular Hemoglobin 29.8 pg (26-34); Mean Corpuscular Volume 91.3 fl (80-100); Mean Platelet Volume 9.8 fl (7.4-10.4); Monocytes Absolute Auto 0.5 K/mm3 (0.1-0.6); Monocytes Percent Auto 7.1 % (2.6-8.5); Neutrophils Absolute Auto 3.8 K/mm3 (1.3-6.7); Neutrophils Percent Auto 53.7 % (45.5-73.1); Platelet Count Result 313 k/mm3 (150-375); Red Blood Count 4.73 M/mm3 (4.6-6.20); Red Cell Distribution Width 13.2 % (11.5-14.5); White Blood Count 7.1 K/mm3 (4.5-10.0)
[2024-07-07 23:30] LABS: Prothrombin Time 14.1 Seconds (11.1-14.7)
[2024-07-07 23:31] LABS: Partial Thromboplastin Time 28.6 Seconds (22.3-36.8)
[2024-07-07 23:34] LABS: Lactic Acid Reflex 1.7 mmol/L (0.7-2.0)
[2024-07-08] VITALS (13 sets, daily range): BP systolic 101–139; BP diastolic 62–86; PULSE 51–98; RESP 12–20; TEMP 36.6–36.8; O2SAT 97–100; BMI 23.8
--- NOTE | 2024-07-08 | ECHO_ITS ---
Patient Info Name: Felix Jacobs Age: 48 years : 1975 Gender: Male Ht: 69 in Wt: 161 lbs BSA: 1.89 m2 HR: 65 bpm BP: 139 / 86 mmHg Heart Rhythm: Sinus Rhythm Technical Quality: Good Exam Date: 07/08/2024 2:39 PM Exam Location: Echo Lab Patient Status: Inpatient Admit Date: 07/08/2024 Staff Ordering Physician: Nery Ferrari PA-C Attending Provider: Eunice Allen MD Referring Physician: Vega CARDONA; Exam Type: CA echo doppler w bubble study Study Info Complete two-dimensional, color flow and Doppler transthoracic echocardiogram is performed with agitated saline. Summary 1. Left ventricular chamber dimension is normal. 2. Left ventricular systolic function is normal, estimated at 65-70%. 3. There is mildly increased left ventricular wall thickness. 4. The left ventricular diastolic function is grade I diastolic dysfunction. 5. Right ventricular systolic function is normal. 6. Left atrial chamber dimension is mildly enlarged. 7. Right atrial chamber dimension is mildly enlarged. 8. Intact interatrial septum visualized by color flow and agitated saline imaging. Negative bubble study. 9. There is mild tricuspid valve regurgitation. Left Ventricle Left ventricular chamber dimension is normal. Left ventricular systolic function is normal, estimated at 65-70%. There is mildly increased left ventricular wall thickness. The left ventricular diastolic function is grade I diastolic dysfunction. Right Ventricle Right ventricular chamber dimension is normal. Right ventricular systolic function is normal. Left Atria Left atrial chamber dimension is mildly enlarged. Right Atria Right atrial chamber dimension is mildly enlarged. Atrial Septum Intact interatrial septum visualized by color flow and agitated saline imaging. Negative bubble study. Aortic Valve The aortic valve is trileaflet. There is no aortic valve stenosis. There is no aortic valve regurgitation. Pulmonic Valve The pulmonic valve is not well visualized. There is no pulmonic regurgitation. Mitral Valve There is trace mitral valve regurgitation. Tricuspid Valve There is mild tricuspid valve regurgitation. Pericardium/Pleural There is no pericardial effusion. Inferior Vena Cava Normal inferior vena cava with >50% collapse upon inspiration consistent with normal right atrial pressure, 3 mmHg. Aorta The aortic root size at the sinus of Valsalva is normal. Left Ventricular Outflow Tract Name Value Normal LVOT 2D LVOT Diameter 2.3 cm LVOT Doppler LVOT Peak Gradient 7 mmHg LVOT Mean Gradient 4 mmHg LVOT VTI 24 cm LVOT VTI/AV VTI Ratio 0.8 LVOT Stroke Volume 102 ml LVOT CO 5.6 l/min LVOT CI 3.0 l/min/m2 Pulmonic Valve Name Value Normal PV Doppler PV Peak Gradient 5 mmHg Mitral Valve Name Value Normal MV Doppler MV Peak Gradient 2 mmHg MV Mean Gradient 1 mmHg MV Decel [place] 368 cm/s2 MV PHT 50 ms MV Area (PHT) 4.4 cm2 4.0-5.0 MV Area (Cont Eq VTI) 4.0 cm2 MV Regurgitation Doppler MR Peak Gradient 34 mmHg MV Diastolic Function MV E Peak Velocity 64 cm/s MV A Peak Velocity 89 cm/s MV E/A 0.7 MV Decel Time 173 ms MV Annular TDI MV E/e' (Septal) 12.0 <=8.0 MV E/e' (Lateral) 6.8 <=8.0 MV E/e' (Average) 9.4 Tricuspid Valve Name Value Normal TV Regurgitation Doppler TR Peak Velocity 284 cm/s TR Peak Gradient 26 mmHg Estimated PAP/RSVP RA Pressure 3 mmHg <=5 PA Systolic Pressure 35 mmHg <36 RV Systolic Pressure 35 mmHg <36 Aortic Valve Name Value Normal AV Doppler AV Peak Velocity 158 cm/s AV Peak Gradient 10 mmHg AV Mean Gradient 5 mmHg AV VTI 30 cm AV Area (Cont Eq VTI) 3.4 cm2 >=3.0 AV Area (Cont Eq Fabrice) 3.6 cm2 AV Regurgitation 2D LVOT Area 4.2 cm2 Ventricles Name Value Normal LV Dimensions 2D/MM IVS Diastolic Thickness (2D) 0.9 cm 0.6-1.0 LVID Diastole (2D) 5.1 cm 4.2-5.8 LVIW Diastolic Thickness (2D) 0.9 cm 0.6-1.0 LVID Systole (2D) 3.4 cm 2.5-4.0 LVOT Diameter 2.3 cm LV Mass (2D Cubed) 167.23 g 88.00-224.00 LV Mass Index (2D Cubed) 88 g/m2 49-115 Relative Wall Thickness (2D) 0.37 LV Fractional Shortening/Ejection Fraction 2D/MM LV Fractional Shortening (2D) 34 % 25-43 LV EF (2D Teicholz) 63 % 52-72 LV Diastolic Volume (4C MOD) 200 ml LV EF (4C MOD) 58 % LV Diastolic Length (4C) 9.3 cm LV Systolic Length (4C) 8.3 cm LV Stroke Volume (4C MOD) 115 ml Atria Name Value Normal LA Dimensions LA Dimension (2D) 4.0 cm 3.0-4.1 LA Dimen Index (2D) 2.1 cm/m2 LA Volume (4C A-L) 75 ml RA Dimensions RA Area (4C) 19.5 cm2 <=18.0 Report Signatures
[2024-07-08 00:11] LABS: Alanine Aminotransferase 13 U/L (6-50); Albumin Level 3.8 g/dL (3.5-5.1); Alkaline Phosphatase 48 U/L (38-126); Anion Gap -1 mmol/L (4-12); Aspartate Amino Transferase 21 U/L (17-59); Bilirubin,Total 0.2 mg/dL (0.2-1.3); Blood Urea Nitrogen 27 mg/dL (9-20); Calcium 9.2 mg/dL (8.4-10.2); Carbon Dioxide 28 mmol/L (22-30); Chloride 111 mmol/L (98-107); Estimated CRCL calculation 82 ml/min; Estimated Glomerular Filt Rate > 60; Glucose 134 mg/dL (65-110); Magnesium 2.2 mg/dL (1.6-2.3); Potassium 4.6 mmol/L (3.4-5.0); Sodium 138 mmol/L (137-145)
[2024-07-08 00:23] LABS: Troponin I < 0.012 ng/mL (0.000-0.034)
[2024-07-08 02:28] LABS: Troponin I < 0.012 ng/mL (0.000-0.034)
--- NOTE | 2024-07-08 03:04 | ED_ITS ---
HPI - General Adult General Chief complaint: Unspecified Stated complaint: anxiety, high bp Time Seen by Provider: 07/07/24 22:44 History of Present Illness HPI narrative: patient is a 48-year-old gentleman who presents emergency department with chief complaint of I feel like I am having a stroke. Patient reports that he has had prior history of seizures and also has had a stroke the patient states that he is on Eliquis and also on a anticonvulsive. The patient states over the last 2 days he has had difficulty with forming sentences and words patient states this is similar to whenever he has had a stroke in the past. Patient states he was seen at [facility] and told that he could be discharged home. Related Data Allergies Allergy/AdvReac Type Severity Reaction Status Date / Time No Known Allergies Allergy Verified 07/07/24 21:35 Review of Systems 2 Review of Systems: A 10 system review of systems was completed on the patient and is negative except for what is stated in the HPI. Nursing and ancillary documentation was reviewed. 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 HTN (hypertension) Social History Social History Smoking packs per day: 1 Smoking cigarettes per day: 20.0 Smoking status: Current every day smoker Tobacco type: cigarettes Additional smoking assessment comments: smoking since 5th grade Alcohol intake: never Substance use type: marijuana Do You Feel Safe in your Home?: Yes Lack of Transportation: YES Lack of Food: Never True Current Housing: I Have Housing Concerned About Future Housing: No Difficulty Paying Gas/Electric Bills: No Difficulty Paying for Meds: No Currently Unemployed: YES Education: High School Diploma/GED Difficulty w/ Childcare or Family Care: No Spiritual care concerns: No Exam 2 Narrative: GENERAL: Well-appearing, well-nourished, and in no acute distress. HEAD: Normocephalic, atraumatic. EYES: PERRLA and EOMI. ENT: Nares clear, no rhinorrhea or epistaxis. Mucous membranes moist. NECK: Supple. CHEST: Clear to auscultation. No respiratory distress. HEART: Regular rate and rhythm. No murmur heard. Normal peripheral pulses. ABDOMEN: Soft, nontender, nondistended, normal active bowel sounds. EXTREMITIES: Normal range of motion. No edema. SKIN: Warm, dry, no rash. NEURO: No focal Motor deficits, has difficulty forming words and has a slightly slow speech pattern. Alert and oriented x3. PSYCH: Normal mood and affect. Course Vital Signs Vital signs: Vital Signs Temperature 36.2 C L 07/07/24 21:36 Pulse Rate 78 07/07/24 21:36 Respiratory Rate 16 07/07/24 21:36 Blood Pressure 140/98 H 07/07/24 21:36 Pulse Oximetry 99 07/07/24 21:36 Oxygen Delivery Room Air 07/07/24 21:36 Temperature 36.2 C L 07/07/24 21:36 Pulse Rate 74 07/08/24 02:06 Respiratory Rate 17 07/08/24 02:06 Blood Pressure 122/76 07/08/24 02:06 Pulse Oximetry 100 07/08/24 02:06 Oxygen Delivery Room Air 07/07/24 21:36 Medical Decision Making [facility] Narrative Medical decision making narrative: last known well was 2 days ago. The patient is not a candidate for thrombolytics therapy. CT angiography of the head neck showed a chronic right MCA infarct laboratory studies were obtained showed normal CBC CMP showed no acute abnormality troponin was negative at 0 hour and 3 hour given the patient's prior history of CVA and also changes in his speech better in the case was discussed with the hospitalist patient will be admitted for observation and MRI Vital Signs Vital Signs: Vital Signs Temperature 36.2 C L 07/07/24 21:36 Pulse Rate 78 07/07/24 21:36 Respiratory Rate 16 07/07/24 21:36 Blood Pressure 140/98 H 07/07/24 21:36 Pulse Oximetry 99 07/07/24 21:36 Oxygen Delivery Room Air 07/07/24 21:36 Temperature 36.2 C L 07/07/24 21:36 Pulse Rate 74 07/08/24 02:06 Respiratory Rate 17 07/08/24 02:06 Blood Pressure 122/76 07/08/24 02:06 Pulse Oximetry 100 07/08/24 02:06 Oxygen Delivery Room Air 07/07/24 21:36 Lab Data 07/07/24 23:04 07/07/24 23:54 Labs: Lab Results 07/07/24 07/07/24 07/08/24 Range/Units 23:04 23:54 02:01 WBC 7.1 (4.5-10.0) K/mm3 RBC 4.73 (4.6-6.20) M/mm3 Hgb 14.1 (14.0-18.0) g/dL Hct 43.2 (42.0-52.0) % MCV 91.3 (80-100) fl MCH 29.8 (26-34) pg MCHC 32.6 (32-36) g/dl RDW 13.2 (11.5-14.5) % Plt Count 313 (150-375) k/mm3 MPV 9.8 (7.4-10.4) fl Immature Gran % (Auto) 0.3 (0-0.5) % Neut % (Auto) 53.7 (45.5-73.1) % Lymph % (Auto) 33.4 (18.3-44.2) % [place] % (Auto) 7.1 (2.6-8.5) % Eos % (Auto) 4.7 H (0-4.4) % Baso % (Auto) 0.8 (0.2-1.2) % Lymph # (Auto) 2.36 (0.9-3.2) K/mm3 [place] # (Auto) 0.5 (0.1-0.6) K/mm3 Eos # (Auto) 0.3 (0-0.3) K/mm3 Baso # (Auto) 0.1 (0.0-0.1) K/mm3 Abs Immat Gran (auto) 0.02 (0.00-0.031) K/mm3 Absolute Neuts (auto) 3.8 (1.3-6.7) K/mm3 Absolute Nucleated RBC 0.000 (0.0-0.012) K/mm3 Nucleated RBC % 0.0 (0.0-0.2) % PT 14.1 (11.1-14.7) Seconds INR 1.0 APTT 28.6 (22.3-36.8) Seconds Sodium 138 (137-145) mmol/L Potassium 4.6 (3.4-5.0) mmol/L Chloride 111 H (98-107) mmol/L Carbon Dioxide 28 (22-30) mmol/L Anion Gap -1 L (4-12) mmol/L BUN 27 H (9-20) mg/dL Creatinine 1.00 (0.7-1.3) mg/dL Estim Creat Clear Calc 82 ml/min Estimated GFR > 60 (59 - ) Glucose 134 H (65-110) mg/dL Lactic Acid 1.7 (0.7-2.0) mmol/L Calcium 9.2 (8.4-10.2) mg/dL Magnesium 2.2 (1.6-2.3) mg/dL Total Bilirubin 0.2 (0.2-1.3) mg/dL AST 21 (17-59) U/L ALT 13 (6-50) U/L Alkaline Phosphatase 48 (38-126) U/L Troponin I < 0.012 < 0.012 (0.000-0.034) ng/mL Total Protein 6.0 L (6.3-8.2) g/dL Albumin 3.8 (3.5-5.1) g/dL Discharge Plan Discharge Clinical Impression: Weakness, Right-sided cerebrovascular accident (CVA) Patient Disposition: Still a Patient Condition: Stable Patient Language: Ukrainian Prescriptions: No Action acetaminophen 325 mg Tablet 650 mg PO Q4H PRN (Reason: Mild Pain (1-3) Or Fever) Qty: 0 0RF lidocaine [Lidocaine Pain Relief] 4 % Adhesive Patch,Medicated 2 patch transdermal DAILY Qty: 30 0RF divalproex [Depakote] 250 mg Tablet,Delayed Release (Dr/Ec) 500 mg PO Q12H Qty: 60 0RF amlodipine [Norvasc] 5 mg Tablet 5 mg PO DAILY Qty: 30 0RF aspirin 325 mg Tablet,Delayed Release (Dr/Ec) 325 mg PO DAILY Qty: 30 0RF metoprolol tartrate 50 mg Tablet 50 mg PO BID Qty: 60 0RF hydroxyzine HCl 25 mg Tablet 25 mg PO HS Qty: 30 0RF Anjali-Bid 1 billion cell- 250 mg Tablet 1 tab PO BID PRN (Reason: Diarrhea) Qty: 60 0RF Eliquis 5 mg Tablet 5 mg PO BID Qty: 60 0RF Follow-up/Referrals: UNKNOWN,DOCTOR [Primary Care Provider] - Time of Disposition: 03:06
[2024-07-08] MEDS: LORazepam INJ (*CRX) 2 MG/ML VIAL 1 MG IV PUSH (04:32)
--- NOTE | 2024-07-08 07:09 | P.HP_ITS ---
H&P: HPI History of Present Illness Date/Time: 07/08/24 07:09 Chief Complaint: difficulty forming sentences Narrative: 48 year old male with past medical history of hypertension, hyperlipidemia, prior CVA (04/2024), seizures, PTSD and bipolar disorder presents to the hospital for difficulty with word finding. He states that about 2 days ago he noticed he was having difficulty speaking, unable to form proper sentences. The difficulty started to increase and he noticed garbled speech which prompted him to go to the hospital for fear he was having another stroke. He originally went to [facility] where the patient states they checked his blood pressure, did no imaging and discharged him from the ED. He then came to [facility] for further workup. The patient denies any weakness, changes in gait, facial droop, increased confusion, or seizure like activity. Per chart review, patient was recently admitted to [facility] on 05/05 with uncontrolled HTN and seizure like activity. During his admission patient required intubation as he was unable to protect his airway. CT head showed acute infarct within right frontal lobe and a possible chronic infarct in the anterior right temporal lobe. CTA head neck showed nonocclusive filling defect within right terminal ICA and proximal MCA M1 division. Patient underwent cerebral angiogram with plans for thrombectomy upon admit by IR, but apparently no clot was found. Patient underwent a cEEG with abnormal reading. He was later extubated and started on Depakote. Patient likely started on Depakote instead of Keppra to better control his bipolar. Per patient he has not been on antipsychotic medications prior to Depakote for his bipolar. Since being discharged from the ICU at [facility] he reports active hallucinations where he sees his loved ones lying in bed with him. He attempts to talk to them but they do not talk back. He denies auditory hallucinations. He notes that he has been feeling a demonic presence around his room for the past few days. He denies any active hallucinations during assessment. Patient had a prior suicide attempt in 2011 resulting in a admission to a psychiatric hospital in [place]. He was again hospitalized at the same facility for suicidal ideations in 2012. He does not further elaborate on these occurrences. He denies current suicidal/homicidal ideations. [facility] does not have a psychiatrist or a councillor. He has no other complaints denying chest pain, shortness of breath, palpitations, nausea/vomiting and abdominal pain. Consult made to psychology Dr. Toney who plans to see patient tomorrow. Per Dr. Toney since the patient is having active visual hallucination, but not auditory this may be more medical delirium. Labs were ordered as he requested and care coordination was consulted for a mini mental. ED workup: CBC unremarkable with WBC 7.1, H/H 14.1/43.2, PLT 313. Chemistry with Na138, K 4.6, BUN/Cr 27/1. Lactic 1.7. Troponin negative. UA nonconcerning for infection. Chest XR: No acute cardiopulmonary disease. CT head/neck: no large vessel occlusion or stenosis, No significant vascular abnormality seen, Probable chronic infarcts in the right temporal lobe and right frontal lobe, Probable left posterior fossa arachnoid cyst. Review of Systems Review of Systems: All systems reviewed & are unremarkable except as noted in HPI and below PMFSH Past Medical History Medical History (Updated 07/08/24 @ 14:53 by Nery Ferrari PA-C) PTSD (post-traumatic stress disorder) Bipolar disorder Gait abnormality Memory deficit Falls frequently History of drug abuse Anxiety and depression Elevated d-dimer Avery's paralysis Hemiparesis affecting left side as late effect of stroke HTN (hypertension) Family History Family History Other Unknown family medical history Social History Social History (Updated 07/08/24 @ 14:54 by Nery Ferrari PA-C) Social History: Lives with his mom and her boyfriend. Smoking packs per day: 1 Smoking cigarettes per day: 20.0 Years smoked: 36 Smoking pack-years: 36.00 Smoking status: Current every day smoker Tobacco type: cigarettes Additional smoking assessment comments: smoking since 5th grade Alcohol intake: never Substance use type: marijuana Do You Feel Safe in your Home?: Yes Lack of Transportation: YES Lack of Food: Never True Current Housing: I Have Housing Concerned About Future Housing: No Difficulty Paying Gas/Electric Bills: No Difficulty Paying for Meds: No Currently Unemployed: YES Education: High School Diploma/GED Difficulty w/ Childcare or Family Care: No Occupation/Education: unemployed Gender identity (if verbalized by the patient): Male Spiritual care concerns: No Meds Home Medications and Allergies Home Medications ?Medication ?Instructions ?Recorded ?Confirmed ?Type L.acidophilus-L.bulgar-B.bifid-S.thermoph 1 tab PO BID PRN Diarrhea #60 tabs 06/04/24 07/08/24 Rx 1 billion cell-250 mg tablet (Anjali-Bid) acetaminophen 325 mg tablet 650 mg (2 x 325 mg) PO Q4H PRN 06/04/24 07/08/24 Rx Mild Pain (1-3) Or Fever #0 tabs amlodipine 5 mg tablet (Norvasc) 5 mg PO DAILY #30 tabs 06/04/24 07/08/24 Rx apixaban 5 mg tablet (Eliquis) 5 mg PO BID #60 tabs 06/04/24 07/08/24 Rx aspirin 325 mg tablet,delayed 325 mg PO DAILY #30 tabs 06/04/24 07/08/24 Rx release divalproex 250 mg tablet,delayed 500 mg (2 x 250 mg) PO Q12H #60 06/04/24 07/08/24 Rx release (Depakote) tabs hydroxyzine HCl 25 mg tablet 25 mg PO HS #30 tabs 06/04/24 07/08/24 Rx lidocaine 4 % topical patch 2 patch transdermal DAILY #30 ea 06/04/24 07/08/24 Rx (Lidocaine Pain Relief) metoprolol tartrate 50 mg tablet 50 mg PO BID #60 tabs 06/04/24 07/08/24 Rx Allergies Allergy/AdvReac Type Severity Reaction Status Date / Time No Known Allergies Allergy Verified 07/08/24 10:26 Vital Signs Vital Signs - 24 hr 07/07/24 21:36 07/08/24 02:06 07/08/24 04:04 Temperature 97.2 F L Pulse Rate 78 74 51 L Respiratory Rate 16 17 14 Blood Pressure 140/98 H 122/76 109/62 Pulse Oximetry 99 100 100 Oxygen Delivery Room Air 07/08/24 04:08 07/08/24 06:59 Temperature Pulse Rate 54 L 56 L Respiratory Rate 14 Blood Pressure 101/65 Pulse Oximetry 100 Oxygen Delivery Exam Narrative: AF HR 86 RR 16 SpO2 97 BP 131/69 General: male in no acute respiratory distress who is nontoxic appearing, lying semi recumbent in bed. HEENT: Normocephalic. Atraumatic. Pupils equal round reactive to light. Extraocular movement intact. Sclera clear and anicteric. No facial asymmetry. Neck: Neck was supple. No dominant adenopathy, thyromegaly or masses. Chest: Lungs are clear to auscultation bilaterally. No wheezes or crackles. CV: Heart was regular rate and rhythm. S1/S2. No murmurs, gallops, or rubs. Abd: Abdomen was soft. Nontender. Nondistended. Positive bowel sounds. No organomegaly or masses. Ext: No clubbing, cyanosis, or edema. 2+ DP pulses bilaterally. Neuro: Patient is alert and oriented x4. Strength is 5/5 in both upper and lower extremities pushes and pulls. Cranial nerves 2-12 are intact. Speech is clear. Psych: Tearful. Patient is pleasant and cooperative. Skin: Warm and dry. No rashes noted. H&P: Results Labs Labs: Short CBC 07/07/24 Range/Units 23:04 WBC 7.1 (4.5-10.0) K/mm3 Hgb 14.1 (14.0-18.0) g/dL Hct 43.2 (42.0-52.0) % Plt Count 313 (150-375) k/mm3 BMP 07/07/24 23:54 Sodium 138 Potassium 4.6 Chloride 111 H Carbon Dioxide 28 BUN 27 H Creatinine 1.00 Glucose 134 H Calcium 9.2 Cardiac Enzymes 07/07/24 07/08/24 Range/Units 23:54 02:01 Troponin I < 0.012 < 0.012 (0.000-0.034) ng/mL Liver Function 07/07/24 Range/Units 23:54 Total Bilirubin 0.2 (0.2-1.3) mg/dL AST 21 (17-59) U/L ALT 13 (6-50) U/L Alkaline Phosphatase 48 (38-126) U/L Albumin 3.8 (3.5-5.1) g/dL Assessment and Plan Assessment and plan (1) Word finding difficulty: Code(s): R47.89 - Other speech disturbances Status: Acute Assessment and Plan: Patient notes that 2 days ago he developed difficulty with word finding and garbling. This continued to worsen which prompted him to come to the hospital for further evaluation. He denies weakness, facial droop, slurred speech, increased confusion and seizure like activity. Started on atorvastatin 40 mg daily Continue Eliquis 5 mg BID and ASA Cholesterol panel WNL EKG sinus rhythm Head/neck CTA: No large vessel occlusion or stenosis. No significant vascular abnormality seen. Probable chronic infarcts in the right temporal lobe and right frontal lobe. Probable left posterior fossa arachnoid cyst. MRI: Multiple small cortical with laminar necrosis in the right cerebral hemisphere in the right middle cerebral artery vascular distribution. No evident acute intracranial process. Echocardiogram with bubble study ordered Monitor blood glucose Telemetry monitoring Monitor CBC, CMP, magnesium, troponin, and lipid profile Monitor blood pressure Neurology consulted, appreciate assistance and recommendations (2) Seizure: Code(s): R56.9 - Unspecified convulsions Status: Acute Assessment and Plan: Last seizure in april following a CVA. - Denies any seizure like activity - Continue Depakote 500 mg BID - Depakote level ordered - Monitor (3) Bipolar disorder: Code(s): F31.9 - Bipolar disorder, unspecified Status: Acute Assessment and Plan: Since being discharged from the ICU at [facility] he reports active hallucinations where he sees his loved ones lying in bed with him. He attempts to talk to them but they do not talk back. He denies auditory hallucinations. He notes that he has been feeling a demonic presence around his room for the past few days. Prior suicide attempt in 2011 resulting in a admission to a psychiatric hospital in [place]. He was again hospitalized at the same facility for suicidal idea tions in 2012. He denies current suicidal/homicidal ideations. - B12 and folate - Vit D - RPR - HIV - GC/Trich Urine - UDS - Hepatitis panel - Continue Depakote 500 mg BID, Depakote level ordered - Consult care coordination for mini mental and to obtain follow up with psych/counselor - Consult made to psychology Dr. Toney, appreciate recommendations (4) HTN (hypertension): Code(s): I10 - Essential (primary) hypertension Status: Acute Assessment and Plan: Chronic, however patient has been normotensive since admission despite antihypertensives being held - Holding amlodipine 5 mg daily and metoprolol 50 mg BID - Resume as appropriate - Monitor (5) HLD (hyperlipidemia): Code(s): E78.5 - Hyperlipidemia, unspecified Status: Acute Assessment and Plan: Started on atorvastatin 40 mg daily Quality VTE Prophylaxis VTE prophylaxis: pharmacologic ordered
[2024-07-08 08:12] LABS: Cholesterol 137 mg/dL (0-200); HDL Direct 62 mg/dL
[2024-07-08 08:23] LABS: LDL Cholesterol Direct 54 mg/dL
[2024-07-08] MEDS: APIXABAN 5 MG TABLET PO ×2 (09:03→21:25)
[2024-07-08] MEDS: ASPIRIN 325 MG ENTERIC TABLET PO (09:03)
[2024-07-08] MEDS: ATORVASTATIN 40 MG TABLET PO (09:03)
[2024-07-08] MEDS: DIVALPROEX SODIUM DR 250 MG TABEC 500 MG PO ×2 (09:03→21:25)
[2024-07-08 09:23] LABS: Add Urine Microscopic? NO; Appearance Urine Clear (Clear); Bilirubin Urine Negative (Negative); Blood Urine Negative (Negative); Color Urine Yellow (Yellow); Glucose Urine UA Negative (Negative); Ketones Urine Negative (Negative); Leukocyte Esterase Ur Negative LEU/UL (Negative); Nitrate Urine Negative (Negative); Protein Urine Negative (Negative); Specific Grav Ur 1.043 (1.001-1.035); Urobilinogen Urine 0.2 mg/dL (<2.0); pH Urine 5.5 (5.0-9.0)
--- NOTE | 2024-07-08 09:44 | ADMGEN ---
This patient, Felix Jacobs, was admitted to [facility]. Patient/family oriented to hospital policies and general routines including ID bracelet, bed and alarms, visiting hours, pain management, procedures, bathroom and other care routines, personal items, smoking policy, room service/diet, and visiting hours. Information on how to activate the Rapid Response Team has been discussed. Patient/Family are encouraged to report perceived risks to care and to ask questions if they do not understand what they are told or what they should do. Report from Joyce in ER.
--- NOTE | 2024-07-08 12:41 | P.CONNEU_ITS ---
Assessment and Plan Assessment and plan (1) Gait abnormality: Code(s): R26.9 - Unspecified abnormalities of gait and mobility Status: Acute (2) Memory deficit: Code(s): R41.3 - Other amnesia Status: Acute (3) Anxiety and depression: Code(s): F41.9 - Anxiety disorder, unspecified; F32.A - Depression, unspecified Status: Acute (4) Hemiparesis affecting left side as late effect of stroke: Code(s): I69.354 - Hemiplegia and hemiparesis following cerebral infarction affecting left non-dominant side Status: Acute (5) Seizure: Code(s): R56.9 - Unspecified convulsions Status: Acute Plan 1. Stroke with multiple right cerebral hemispheric lesions in the distribution of the right middle cerebral Artery. 2. Seizures secondary to his stroke 3. Hypertension 4. Status post evaluation for possible thrombectomy from the right terminal ICA and MCA M1 division at the other hospital but apparently no clot was found. Patient has been on apixaban 5mg b.i.d., aspirin 325mg daily, and Depakote 500mg q.12 hours. 5. CTA at our institution has not documented any large vessel occlusion or stenosis. Will benefit from the echocardiogram for ongoing further recommendations. Possibility of embolic stroke likely. Depakote levels can be checked during this hospitalization to bring to the therapeutic range, unclear why he was on Depakote not on Keppra. Consult date: 07/08/24 HPI: Felix Jacobs is a 48 year old male Admitted to the hospital through the emergency room with the impending sensation of stroke in addition to the ongoing history of seizures and stroke in the past patient .Has reportedly been on Eliquis and anticonvulsant and he has been experiencing difficulties in conversation and recently has been evaluated at the emergency room of [facility]. He is not allergic to any medication.In the past he has ongoing history of memory deficit with gait abnormality, anxiety and depression with history of drug abuse and also hemiparesis on the left side. Currently everyday smoker but no history of alcoholism ,he smokes about 20 cigarettes per day. On initial exam in the emergency room he was generally stable ,his vital signs were normal except blood pressure 140/98 ,CTA of the brain revealed a right MCA infarct ,CBC was normal ,BMP was normal except blood sugar of 134 routine lab studies were normal also. As mentioned above CTA revealed only chronic infarct in the right temporal lobe and right frontal lobe in addition raise the possibility of the left posterior fossa arachnoid cyst, chest x-ray was negative, and his abdomen and pelvic CT scan in January of this year were consistent with infarctof the spleen, bilateral renal cyst, small sliding hiatal hernia, Review of Systems 2 Review of Systems: All systems reviewed & are unremarkable except as noted in HPI and below PMFSH Past Medical History Medical History Gait abnormality Memory deficit Falls frequently History of drug abuse Anxiety and depression Elevated d-dimer Avery's paralysis Hemiparesis affecting left side as late effect of stroke HTN (hypertension) Family History Family History Other Unknown family medical history Social History Social History Smoking packs per day: 1 Smoking cigarettes per day: 20.0 Smoking status: Current every day smoker Additional smoking assessment comments: smoking since 5th grade Alcohol intake: never Substance use type: marijuana Do You Feel Safe in your Home?: Yes Lack of Transportation: YES Lack of Food: Never True Current Housing: I Have Housing Concerned About Future Housing: No Difficulty Paying Gas/Electric Bills: No Difficulty Paying for Meds: No Currently Unemployed: YES Education: High School Diploma/GED Difficulty w/ Childcare or Family Care: No Spiritual care concerns: No Meds Home Medications and Allergies Home Medications ?Medication ?Instructions ?Recorded ?Confirmed ?Type L.acidophilus-L.bulgar-B.bifid-S.thermoph 1 tab PO BID PRN Diarrhea #60 tabs 06/04/24 07/08/24 Rx 1 billion cell-250 mg tablet (Anjali-Bid) acetaminophen 325 mg tablet 650 mg (2 x 325 mg) PO Q4H PRN 06/04/24 07/08/24 Rx Mild Pain (1-3) Or Fever #0 tabs amlodipine 5 mg tablet (Norvasc) 5 mg PO DAILY #30 tabs 06/04/24 07/08/24 Rx apixaban 5 mg tablet (Eliquis) 5 mg PO BID #60 tabs 06/04/24 07/08/24 Rx aspirin 325 mg tablet,delayed 325 mg PO DAILY #30 tabs 06/04/24 07/08/24 Rx release divalproex 250 mg tablet,delayed 500 mg (2 x 250 mg) PO Q12H #60 06/04/24 07/08/24 Rx release (Depakote) tabs hydroxyzine HCl 25 mg tablet 25 mg PO HS #30 tabs 06/04/24 07/08/24 Rx lidocaine 4 % topical patch 2 patch transdermal DAILY #30 ea 06/04/24 07/08/24 Rx (Lidocaine Pain Relief) metoprolol tartrate 50 mg tablet 50 mg PO BID #60 tabs 06/04/24 07/08/24 Rx Allergies Allergy/AdvReac Type Severity Reaction Status Date / Time No Known Allergies Allergy Verified 07/08/24 10:26 Vital Signs Vital Signs - 24 hr 07/07/24 21:36 07/08/24 02:06 07/08/24 04:04 Temperature 36.2 C L Pulse Rate 78 74 51 L Respiratory Rate 16 17 14 Blood Pressure 140/98 H 122/76 109/62 Pulse Oximetry 99 100 100 Oxygen Delivery Room Air 07/08/24 04:08 07/08/24 06:59 07/08/24 08:15 Temperature Pulse Rate 54 L 56 L 51 L Respiratory Rate 14 18 Blood Pressure 101/65 138/81 Pulse Oximetry 100 99 Oxygen Delivery 07/08/24 08:25 07/08/24 09:23 07/08/24 10:01 Temperature 36.8 C Pulse Rate 51 L 78 57 L Respiratory Rate 20 12 Blood Pressure 120/78 139/86 Pulse Oximetry 98 100 Oxygen Delivery Exam 2 Narrative: Exam today revealed him arousable, restless not very communicative but still try to follow the instruction, head normocephalic no bruit, ear nose throat examination normal, not able to cooperate for the visual richards, facial grimace is symmetrical, tongue in the oral cavity without fasciculation and motor examination consistent with left hemiparesis with hyperreflexia and upgoing left plantar response ,he was unable to cooperate for the cerebellar functions Also he responded to pinprick all over his body. Results Labs 07/07/24 23:04 07/07/24 23:54 Labs: Short CBC 07/07/24 Range/Units 23:04 WBC 7.1 (4.5-10.0) K/mm3 Hgb 14.1 (14.0-18.0) g/dL Hct 43.2 (42.0-52.0) % Plt Count 313 (150-375) k/mm3 BMP 07/07/24 23:54 Sodium 138 Potassium 4.6 Chloride 111 H Carbon Dioxide 28 BUN 27 H Creatinine 1.00 Glucose 134 H Calcium 9.2 Cardiac Enzymes 07/07/24 07/08/24 Range/Units 23:54 02:01 Troponin I < 0.012 < 0.012 (0.000-0.034) ng/mL Liver Function 07/07/24 Range/Units 23:54 Total Bilirubin 0.2 (0.2-1.3) mg/dL AST 21 (17-59) U/L ALT 13 (6-50) U/L Alkaline Phosphatase 48 (38-126) U/L Albumin 3.8 (3.5-5.1) g/dL Urine 07/08/24 Range/Units 09:17 Urine Color Yellow (Yellow) Urine Appearance Clear (Clear) Urine pH 5.5 (5.0-9.0) Ur Specific [place] 1.043 H (1.001-1.035) Urine Protein Negative (Negative) mg/dL Urine Glucose (UA) Negative (Negative) mg/dL
[2024-07-08 18:39] LABS: Vitamin D 25 Hydroxy 17.4 ng/mL
[2024-07-08 18:40] LABS: Barbiturate Screen Urine Negative (Negative); Benzodiazepines Screen Urine Negative (Negative)
[2024-07-08 19:00] LABS: Cannabinoid Screen Urine Negative (Negative); Cocaine Screen Urine Negative (Negative); Methadone Screen Urine Negative (Negative); Opiate Screen Urine Negative (Negative); Phencyclidine Screen Urine Negative (Negative)
[2024-07-08 19:31] LABS: Folic Acid 14.9 ng/mL (2.76->20)
[2024-07-08 19:36] LABS: Amphetamine Screen Urine Negative (Negative)
[2024-07-08 19:44] LABS: Trichomonas Vag PCR NOT DETECTED (NOT DETECTE)
[2024-07-08 20:08] LABS: Chlamydia trachomatis NOT DETECTED (NOT DETECTE); Neisseria gonorrhoeae PCR NOT DETECTED (NOT DETECTE)
[2024-07-08 21:23] LABS: Hepatitis B Surface Antigen Negative (Negative)
[2024-07-08] MEDS: hydrOXYzine HCL 25 MG TABLET PO (21:25)
[2024-07-08 21:29] LABS: HAV RESULT Negative (Negative); Hepatitis B Core IgM Result Negative (Negative)
[2024-07-08 21:40] LABS: Hepatitis C Virus Antibody Negative (Negative)
[2024-07-09] VITALS (11 sets, daily range): BP systolic 131–155; BP diastolic 77–84; PULSE 49–73; RESP 14–18; TEMP 36.2–36.9; O2SAT 98–100
[2024-07-09 07:02] LABS: Rapid Plasma Reagin Non-Reactive (NonReactive)
[2024-07-09 07:11] LABS: Hematocrit 41.9 % (42.0-52.0); Hemoglobin 13.4 g/dL (14.0-18.0); Mean Corpuscular Hemoglobin 29.8 pg (26-34); Mean Corpuscular Volume 93.3 fl (80-100); Mean Platelet Volume 9.9 fl (7.4-10.4); Platelet Count Result 303 k/mm3 (150-375); Red Blood Count 4.49 M/mm3 (4.6-6.20); Red Cell Distribution Width 13.2 % (11.5-14.5); White Blood Count 6.4 K/mm3 (4.5-10.0)
[2024-07-09 07:19] LABS: Alanine Aminotransferase 11 U/L (6-50); Albumin Level 3.5 g/dL (3.5-5.1); Alkaline Phosphatase 43 U/L (38-126); Anion Gap 2 mmol/L (4-12); Aspartate Amino Transferase 17 U/L (17-59); Bilirubin,Total 0.4 mg/dL (0.2-1.3); Blood Urea Nitrogen 23 mg/dL (9-20); Calcium 8.7 mg/dL (8.4-10.2); Carbon Dioxide 28 mmol/L (22-30); Chloride 108 mmol/L (98-107); Estimated CRCL calculation 75 ml/min; Estimated Glomerular Filt Rate > 60; Glucose 82 mg/dL (65-110); Potassium 4.1 mmol/L (3.4-5.0); Sodium 138 mmol/L (137-145)
[2024-07-09] MEDS: ATORVASTATIN 40 MG TABLET PO (09:31)
[2024-07-09] MEDS: ASPIRIN 325 MG ENTERIC TABLET PO (09:31)
[2024-07-09] MEDS: APIXABAN 5 MG TABLET PO ×2 (09:31→20:16)
[2024-07-09] MEDS: DIVALPROEX SODIUM DR 250 MG TABEC 500 MG PO ×2 (09:42→20:17)
--- NOTE | 2024-07-09 10:58 | P.PNIM_ITS ---
Progress Note: A&P Assessment and Plan (1) Word finding difficulty: Code(s): R47.89 - Other speech disturbances Status: Acute Assessment and Plan: Patient notes that 2 days ago he developed difficulty with word finding and garbling. This continued to worsen which prompted him to come to the hospital for further evaluation. He denies weakness, facial droop, slurred speech, increased confusion and seizure like activity. Started on atorvastatin 40 mg daily Continue Eliquis 5 mg BID and ASA Cholesterol panel WNL EKG sinus rhythm Head/neck CTA: No large vessel occlusion or stenosis. No significant vascular abnormality seen. Probable chronic infarcts in the right temporal lobe and right frontal lobe. Probable left posterior fossa arachnoid cyst. MRI: Multiple small cortical with laminar necrosis in the right cerebral hemisphere in the right middle cerebral artery vascular distribution. No evident acute intracranial process. Echocardiogram with bubble study ordered Monitor blood glucose Telemetry monitoring Monitor CBC, CMP, magnesium, troponin, and lipid profile Monitor blood pressure Neurology consulted, appreciate assistance and recommendations (2) Seizure: Code(s): R56.9 - Unspecified convulsions Status: Acute Assessment and Plan: Last seizure in april following a CVA. - Denies any seizure like activity - Continue Depakote 500 mg BID - Depakote level ordered - Monitor will need to order repeated depakote level (3) Bipolar disorder: Code(s): F31.9 - Bipolar disorder, unspecified Status: Acute Assessment and Plan: Since being discharged from the ICU at [facility] he reports active hallucinations where he sees his loved ones lying in bed with him. He attempts to talk to them but they do not talk back. He denies auditory hallucinations. He notes that he has been feeling a demonic presence around his room for the past few days. Prior suicide attempt in 2011 resulting in a admission to a psychiatric hospital in [place]. He was again hospitalized at the same facility for suicidal ideations in 2012. He denies current suicidal/homicidal ideations. - B12 and folate - Vit D - RPR - HIV - GC/Trich Urine - UDS - Hepatitis panel - Continue Depakote 500 mg BID, Depakote level ordered - Consult care coordination for mini mental and to obtain follow up with psych/counselor - Consult made to psychology Dr. Campuzano, appreciate recommendations (4) HTN (hypertension): Code(s): I10 - Essential (primary) hypertension Status: Acute Assessment and Plan: Chronic, however patient has been normotensive since admission despite antihypertensives being held - Holding amlodipine 5 mg daily and metoprolol 50 mg BID - Resume as appropriate - Monitor (5) HLD (hyperlipidemia): Code(s): E78.5 - Hyperlipidemia, unspecified Status: Acute Assessment and Plan: Started on atorvastatin 40 mg daily Time Spent With Patient Time with patient: Greater than 35 minutes Subjective Date/time seen: 07/09/24 10:58 Interval history: difficulty forming sentences Narrative retrieved from H/P: 48 year old male with past medical history of hypertension, hyperlipidemia, prior CVA (04/2024), seizures, PTSD and bipolar disorder presents to the hospital for difficulty with word finding. He states that about 2 days ago he noticed he was having difficulty speaking, unable to form proper sentences. The difficulty started to increase and he noticed garbled speech which prompted him to go to the hospital for fear he was having another stroke. He originally went to [facility], [place] where the patient states they checked his blood pressure, did no imaging and discharged him from the ED. He then came to [place] for further workup. The patient denies any weakness, changes in gait, facial droop, increased confusion, or seizure like activity. Per chart review, patient was recently admitted to [facility] on 05/05 with uncontrolled HTN and seizure like activity. During his admission patient required intubation as he was unable to protect his airway. CT head showed acute infarct within right frontal lobe and a possible chronic infarct in the anterior right temporal lobe. CTA head neck showed nonocclusive filling defect within right terminal ICA and proximal MCA M1 division. Patient underwent cerebral angiogram with plans for thrombectomy upon admit by IR, but apparently no clot was found. Patient underwent a cEEG with abnormal reading. He was later extubated and started on Depakote. Patient likely started on Depakote instead of Keppra to better control his bipolar. Per patient he has not been on antipsychotic medications prior to Depakote for his bipolar. Since being discharged from the ICU at [facility] he reports active hallucinations where he sees his loved ones lying in bed with him. He attempts to talk to them but they do not talk back. He denies auditory hallucinations. He notes that he has been feeling a demonic presence around his room for the past few days. He denies any active hallucinations during assessment. Patient had a prior suicide attempt in 2011 resulting in a admission to a psychiatric hospital in [place]. He was again hospitalized at the same facility for suicidal ideations in 2013. He does not further elaborate on these occurrences. He denies current suicidal/homicidal ideations. Patient does not have a psychiatrist or a councillor. He has no other complaints denying chest pain, shortness of breath, palpitations, nausea/vomiting and abdominal pain . Consult made to psychology Dr. Campuzaon who plans to see patient today, 1218. Per Dr. Campuzano since the patient is having active visual hallucination, but not auditory this may be more medical delirium. Labs were ordered as he requested and care coordination was consulted for a mini mental. ED workup: CBC unremarkable with WBC 7.1, H/H 14.1/43.2, PLT 313. Chemistry with Na138, K 4.6, BUN/Cr 27/1. Lactic 1.7. Troponin negative. UA nonconcerning for infection. Chest XR: No acute cardiopulmonary disease. CT head/neck: no large vessel occlusion or stenosis, No significant vascular abnormality seen, Probable chronic infarcts in the right temporal lobe and right frontal lobe, Probable left posterior fossa arachnoid cyst. 07/09- assuming care- DR Campuzano is to see pt today. POt is quite, calm Review of Systems Review of Systems: All systems reviewed & are unremarkable except as noted in HPI and below Exam Narrative: General: male in no acute respiratory distress who is nontoxic appearing, lying semi recumbent in bed. HEENT: Normocephalic. Atraumatic. Pupils equal round reactive to light. Extraocular movement intact. Sclera clear and anicteric. No facial asymmetry. Neck: Neck was supple. No dominant adenopathy, thyromegaly or masses. Chest: Lungs are clear to auscultation bilaterally. No wheezes or crackles. CV: Heart was regular rate and rhythm. S1/S2. No murmurs, gallops, or rubs. Abd: Abdomen was soft. Nontender. Nondistended. Positive bowel sounds. No organomegaly or masses. Ext: No clubbing, cyanosis, or edema. 2+ DP pulses bilaterally. Neuro: Patient is alert and oriented x4. Strength is 5/5 in both upper and lower extremities pushes and pulls. Cranial nerves 2-12 are intact. Speech is clear. Psych: Tearful. Patient is pleasant and cooperative. Skin: Warm and dry. No rashes noted. Objective Data Vital Signs Vital Signs: Vital Signs - 24 hr 07/08/24 12:00 07/08/24 14:25 07/08/24 16:00 Temperature 98 F Pulse Rate 85 86 64 Respiratory Rate 16 Blood Pressure 131/69 Pulse Oximetry 97 Oxygen Delivery 07/08/24 20:00 07/08/24 21:31 07/09/24 00:00 Temperature 98.1 F Pulse Rate 98 64 67 Respiratory Rate 14 Blood Pressure 132/67 Pulse Oximetry 97 Oxygen Delivery 07/09/24 04:00 07/09/24 05:37 07/09/24 08:11 Temperature 97.2 F L Pulse Rate 54 L 54 L Respiratory Rate 14 Blood Pressure 155/77 H Pulse Oximetry 100 98 Oxygen Delivery Room Air 07/09/24 09:30 07/09/24 09:30 Temperature Pulse Rate 49 L Respiratory Rate Blood Pressure Pulse Oximetry Oxygen Delivery Room Air Intake/Output Intake/Output: Intake & Output 07/06/24 07/07/24 07/08/24 07/09/24 23:59 23:59 23:59 23:59 Intake Total 1640 650 Output Total 400 Balance 1240 650 Meds/Results Medications: Active Medications Generic Name Dose Route Start Last Admin Trade Name Freq PRN Reason Stop Dose Admin Apixaban 5 mg 07/08/24 09:00 07/09/24 09:31 Apixaban 5 Mg Tablet PO 5 mg Q12HR CHELSEA Administration Aspirin 325 mg 07/08/24 09:00 07/09/24 09:31 Aspirin 325 Mg Enteric Tablet PO 325 mg DAILY CHELSEA Administration Atorvastatin Calcium 40 mg 07/08/24 09:00 07/09/24 09:31 Atorvastatin 40 Mg Tablet PO 40 mg DAILY CHELSEA Administration Divalproex Sodium 500 mg 07/08/24 09:00 07/09/24 09:[address] 250 Mg Tabec PO 500 mg Q12HR CHELSEA Administration Hydroxyzine HCl 25 mg 07/08/24 21:00 07/08/24 21:25 Hydroxyzine Hcl 25 Mg Tablet PO 25 mg HS CHELSEA Administration Perflutren Lipid Microsphere 0 ml 07/08/24 07:07 Perflutren Lipid Microspheres 1.5 Ml Vial Diluted To 10 Ml Total Volume IV PUSH 07/11/24 07:07 ONCE PRN adequate visualization Protocol Radiology Results: ITS Impressions Chest X-Ray 07/07/24 23:10 IMPRESSION: 1. No acute cardiopulmonary disease. Head/Neck CTA 07/08/24 05:37 Impression: No large vessel occlusion or stenosis. No significant vascular abnormality seen. Probable chronic infarcts in the right temporal lobe and right frontal lobe. Probable left posterior fossa arachnoid cyst. Brain MRI 07/08/24 12:30 IMPRESSION: 1. Multiple small cortical with laminar necrosis in the right cerebral hemisphere in the right middle cerebral artery vascular distribution. No evident acute intracranial process. Labs Labs: Laboratory Results - last 24 hr 07/08/24 07/08/24 07/08/24 07:44 16:37 18:01 WBC RBC Hgb Hct MCV MCH MCHC RDW Plt Count MPV Sodium Potassium Chloride Carbon Dioxide Anion Gap BUN Creatinine Estim Creat Clear Calc Estimated GFR Glucose Calcium Total Bilirubin AST ALT Alkaline Phosphatase Total Protein Albumin Vitamin B12 431.0 Vitamin D 25-Hydroxy 17.4 Folate 14.9 Urine Opiates Screen Negative Urine Methadone Screen Negative Ur Barbiturates Screen Negative Valproic Acid 42.0 L Ur Phencyclidine Scrn Negative Ur Amphetamine Screen Negative U Benzodiazepines Scrn Negative Urine Cocaine Screen Negative U Cannabinoids Screen Negative RPR Non-reactive C. trachomatis (PCR) Not detected Hepatitis A IgM Ab Negative Hep Bs Antigen Negative Hep B Core IgM Ab Negative Hepatitis C Ab Screen Negative N. gonorrhoeae (PCR) Not detected T. vaginalis (PCR) Not detected 07/09/24 06:19 WBC 6.4 RBC 4.49 L Hgb 13.4 L Hct 41.9 L MCV 93.3 MCH 29.8 MCHC 32.0 RDW 13.2 Plt Count 303 MPV 9.9 Sodium 138 Potassium 4.1 Chloride 108 H Carbon Dioxide 28 Anion Gap 2 L BUN 23 H Creatinine 1.10 Estim Creat Clear Calc 75 Estimated GFR > 60 Glucose 82 Calcium 8.7 Total Bilirubin 0.4 AST 17 ALT 11 Alkaline Phosphatase 43 Total Protein 6.0 L Albumin 3.5 Vitamin B12 Vitamin D 25-Hydroxy Folate Urine Opiates Screen Urine Methadone Screen Ur Barbiturates Screen Valproic Acid Ur Phencyclidine Scrn Ur Amphetamine Screen U Benzodiazepines Scrn Urine Cocaine Screen U Cannabinoids Screen RPR C. trachomatis (PCR) Hepatitis A IgM Ab Hep Bs Antigen Hep B Core IgM Ab Hepatitis C Ab Screen N. gonorrhoeae (PCR) T. vaginalis (PCR) Quality VTE Prophylaxis VTE prophylaxis: pharmacologic ordered
--- NOTE | 2024-07-09 11:42 | WPDCNPSYCH ---
HPI Data of Consult Date/Time: 07/09/24 11:42 Requesting Physician: Eunice Allen MD Primary Care Provider: UNKNOWN,DOCTOR Consult Narrative Narrative: CHIEF COMPLAINT/REASON FOR HOSPITALIZATION: Patient is a 48-year-old gentleman admitted on 07/06/2024 to the medicine service for word-finding difficulty with plan to rule out cerebrovascular accident REASON FOR PSYCHIATRIC CONSULTATION: Since discharge from the intensive care unit in May 11, 2024, the patient has intermittently been seeing loved ones get into the bed with him. He also will intermittently since a demonic presence around him pushing bad things on him. He denies suicidal and homicidal ideation. he has been very tearful, fidgets, and is withdrawn. HISTORY OF PRESENT ILLNESS: RN Verbal Report: patient sleeps a lot. He is friendly. He is oriented x3. He has been no nursing management problem. His speech is with mild hesitancy and dysarthria. His appetite is good. He has had no auditory or visual hallucinations during the shift that the nurse has been working. Patient encounter with psychiatrist: Patient stated that he did not know why a psychiatric evaluation was called. He states it is due to having seen a psychiatrist and being on psychiatric medications for hallucinations of someone being in bed with him. His last visual hallucination was 07/06/2024. Patient reports that the only time he has the visual hallucinations of a family member getting into bed with him is when he is very tired at night just before falling asleep. Such a finding is consistent with a hypnagogic hallucination and is not likely to respond to the use of antipsychotics. Hypnagogic hallucinations are not a manifestation of a primary psychotic disorder. Patient denies any additional spontaneously reported emotional or psychological symptoms. Onset: Patient reports that his visual hallucinations started after he had his cerebrovascular accident in May 11, 2024. Before that he has never had any hallucinations. He has never had any hallucinations while at the hospital. He reports that they are only visual hallucinations. He denies ever having had auditory hallucinations. He denies ever having tactile hallucinations. Aggravating factors: Patient attributes his visual hallucinations to his medication that he takes at night. Relieving factors: None Associated symptoms: When prompted, the patient reports that his concentration and ability to pay attention are normal for him. He reports however that his memory has suffered some meaningful loss since his stroke. He endorses depressed mood on most days that has been present most of his life. He states that the only thing that makes him feel happy or being with his grandchildren. He reports that he has been having frequent crying spells for most of his life. He reports that his sleep is good and that his weight has constant. He denies feelings of worthlessness. He denies anhedonia. He denies a change in irritability. He reports that his activity level has been normal for him. He denies any paranoia. When asked about the demonic presence, the patient reports that the demonic presence is taking air away from him for the last couple of days. He states that the demonic presence is not associated with the visual hallucinations. He states that when the demonic presence occurs he feels he is about to have another stroke or seizure. The patient may be describing an aura preceding a seizure. Edilma evaluation: The patient reports that he has been diagnosed with bipolar disorder and manic depression in the past. When asked what are the symptoms of manic episode he reports that he can hear children playing in [place] and relates that finding to his childhood growing up on the streets and in various orphanages. The patient then began to cry. Suicide evaluation: The patient denied suicidal ideation at time of interview. When asked his 1st suicidal ideation he reported it was as a teenager. When asked about the frequency of suicidal ideation reports that it is rare as an adult but that as a teenager and was frequent. Patient then began to weep profoundly but only for a brief time. Within a moment the weeping stopped. He then fell to the mattress of his bed and began to sleep deeply. I let a period of time pass to see if he would spontaneously awaken and resume his interview. Continued to lay in bed soundly asleep. He would not awaken even after I started calling his name out loudly and frequently. Only when I shook the patient did he awaken. He stated then that he wanted to stop the interview. PAST PSYCHIATRIC HISTORY: According to the patient's physician assistant men's lacrosse coach the patient has a prior history of posttraumatic stress disorder and bipolar disorder. His last suicide attempt was in 2011. His last suicide ideation was in 2012. He has no psychiatrist and has no counselor. PAST MEDICAL HISTORY: Patient has no primary care provider. 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 Apixaban (Eliquis ) 5 mg p.o. b.i.d. Aspirin 325 mg p.o. q.a.m. Divalproex DR 500 mg p.o. q.12 hours Hydroxyzine 25 mg q.h.s. Lidocaine patch transdermally q.a.m. Metoprolol tartrate 50 mg p.o. b.i.d. HOSPITAL MEDICATIONS: Apixaban (Eliquis ) 5 mg p.o. b.i.d. Aspirin 325 mg p.o. q.a.m. Divalproex DR 500 mg p.o. q.12 hours Hydroxyzine 25 mg p.o. q.h.s. Metoprolol tartrate 50 mg p.o. b.i.d. ALLERGIES: No Known Drug Allergies SMOKING HISTORY: One pack per day since 5th grade ALCOHOL HISTORY: According to the physician assistant men's lacrosse coach history and physical the patient has never used alcohol. DRUG HISTORY: Patient uses marijuana. He also has a history of cocaine use according to [facility] on January, PAST FAMILY/SOCIAL HISTORY: Patient lives with his mother and his mother's boyfriend. The patient is distrustful of his mother's boyfriend because the patient is unable to find some of his medications. This may be a finding consistent with partial pharmacologic compliance. The physician assistant men's lacrosse coach as unaware of any surrogate decision maker such as a power of business attorney or guardianship. Patient is a high school graduate. MEDICAL EVALUATION at [facility] 06/2024: CBC: WBCs 6.4; hemoglobin 13.4 Comprehensive metabolic panel: Random glucose 82 otherwise unremarkable Lipid panel: Triglycerides pending; cholesterol 137; LDL cholesterol 54; HDL direct 62 Urinalysis: Unremarkable Urine drug screen on 07/08/2024 (day 2 of hospitalization): All negative Valproic acid level on 07/08/2024: 42.0 (day 2 of hospitalization well on divalproex DR 500 mg p.o. q.12 hours ) RPR serology: Nonreactive Hepatitis panel negative C. trachomatis by PCR: Not Detected N. gonorrhoeae by PCR: Not Detected T. vaginalis by PCR: Not Detected HIV Serology: Pending on 07/09/2024 CT of the abdomen and pelvis with contrast on 01/22/2023: Large geographic area of diminished enhancement of the spleen suggesting infarct. Infarcts versus acute pyelonephritis, right kidney. Chronic pyelonephritis or infarct of the upper pole right kidney. Occasional small hepatic cyst. Bilateral renal cysts. Diverticulosis of the colon without evidence of diverticulitis. Normal appendix. Small sliding hiatal hernia. Bladder wall thickening which may be du etoprostatomegaly, cystitis is not excluded. CTA of the head and neck on 07/08/2024: No large vessel occlusion or stenosis. No significant vascular abnormality seen. Probable chronic infarcts in the left temporal lobe with encephalomalacia. Chronic infarct in the right frontal lobe. No mass effect or midline shift. Probable arachnoid cyst in the left posterior fossa. No intracranial hemorrhage. Paranasal sinuses and mastoid air cells are clear. Calvarium intact. MRI of the brain/brainstem with and without contrast on 07/08/2024: Multiple small cortical with laminar necrosis in the right middle cerebral hemisphere in the right middle cerebral artery vascular distribution. No evident acute intracranial process. There is a left posterior fossa arachnoid cyst which exertion mass effect on posterior left cerebellum. EKG on 07/07/2024: Sinus rhythm. Ventricular rate 64. Nonspecific T-wave abnormality. QTC interval 381. MENTAL STATUS EXAM:Patient has a self-care deficit. Eye contact was normal. Posture and psychomotor activity were generally normal. However, when the patient was discussing his childhood and teenage years when he had frequent suicidal ideation, he began to profusely weep but only for a few moments and then fell soundly asleep dropping to the mattress from a seated position. He was breathing through the entire spell. He had no incontinence. He had no tonic-clonic activity. He had no tremulousness. I waited a sustained period of time to see if the patient would awaken and re-engage in interview. He never did awaken. I then called out his name loudly and frequently without his arousal. Only with vigorous shaking did the patient awaken and at that point asked to terminate the interview. Speech was normal in rate, volume, and was goal directed. No latency was observed at time of interview. The patient's speech was mildly dysarthric. Mood is: Depressed. Affect was initially euthymic but did become quickly depressed and tearful but only for a moment. Patient denied suicidal ideation. He has no evidence of homicidal ideation. According to the patient's physician assistant men's lacrosse coach, the patient denied homicidal ideation. Other than the visual hallucinations of family members getting into bed with him as the patient would be drifting off to sleep prior to admission, the patient has no additional auditory hallucinations or tactile hallucinations. these findings are consistent with hypnagogic hallucinations and not with hallucinations consistent with a primary psychotic disorder. The low likelihood of improvement balanced out against the potential morbidity and mortality of an antipsychotic would support the position of avoiding antipsychotics at this time. The patient reports demonic presence which are not associated with his visual hallucinations and occur when he states he is about to have another stroke or seizure and might be an Lena rather than a manifestation of paranoia. Cognitively, the patient could not be evaluated well due to the brevity of his interview. Care coordination consultation with mini-mental status exam may provide additional insight into the patient's cognitive capacities. DISCUSSION: The patient presents with visual hallucinations of family members who get into bed with him as the patient is about to fall asleep at night. The symptoms have occurred prior to this admission and are not associated with auditory hallucinations or tactile hallucinations. the preponderance of evidence supports the diagnosis of hypnagogic hallucinations which are not a manifestation of a primary psychotic disorder and her not likely to improve with the use of an antipsychotic. They tend to be self-limiting. The patient describes having depressed mood on most days most of his life. He described himself as struggling with complex trauma issues of having a childhood of living on the street and in various orphanages. According to the physician assistant men's lacrosse coach the patient has a remote history of depression, anxiety, posttraumatic stress disorder, and bipolar disorder. The patient may likely have a persistent depressive disorder. He may also have posttraumatic stress disorder, major depressive disorder, or his affective disorder may now be dominated by a major neurocognitive disorder, probably of the vascular type, with depressed mood. Sertraline 50 mg p.o. q.a.m. may be an appropriate intervention; however, since the patient is undergoing significant neurologic evaluation, I do not want to use psychiatric medication at this time because such medications might alter the current neurologic evaluation and management of the patient. The patient also reports having demonic presence which the patient reports are not associated with visual hallucinations. He states that he feels they are occurring when he is about to have a stroke or seizure and may represent an Lena. The patient also had a spell during his interview when he was discussing his frequent suicidal ideation as a teenager related to his childhood of living on the streets and in various orphanages. As he was describing this finding, he began to weep profoundly but only for a few moments when the weeping abruptly ended. He then fell from his position of being seated on the bed to lying on the mattress abruptly and soundly asleep. I waited a sustained time to see if the patient would awaken spontaneously and re-engage in interview. He did not arouse even when I started to call his name out loudly and frequently. Only after being shaken did the patient awaken. Such a finding seems consistent with cataplexy. The differential diagnosis might also include pseudobulbar palsy. Concern for a possible hypercoagulable state is present based upon not only multiple right cerebral infarcts on MRI and CT of the brain; but also on CT of the brain an area of encephalomalacia in the right temporal lobe, and in review of the CT of the abdomen and pelvis with and without contrast on 01/22/2023, findings of infarcts in the spleen and kidneys were identified. Another possible concern is related to the MRI of the brain with and without contrast on 07/08/2024 that demonstrated a left posterior fossa arachnoid cyst which exerted mass effect on the posterior left cerebellum. The mass effect on the posterior left cerebellum was not described in the CT of the brain conducted a few hours earlier that day. DIAGNOSES/PROBLEM LIST: Hypnagogic Hallucinations of family members getting into bed with him right before he fell asleep Cataplexy Unspecified depression Rule out major neurocognitive disorder, probably of the vascular type, with depression Rule out partial pharmacologic noncompliance PLAN: No antipsychotic is indicated. Sertraline (Zoloft) 50 mg po q am to be started once neurologic evaluation has concluded. Care Coordination Consult for: a. MMSE to screen for cognitive deficits given patient who has memory problems and multiple infarcts. b. To document out patient follow-ups for: 1. Psychiatry 2. Case Management 3. Primary Care 4. To liaison with patient and family regarding: Is creation of a surrogate decision maker indicated? Neurology evaluation is much appreciated. [facility] Past Medical History Medical History (Updated 07/08/24 @ 14:53 by Nery Ferrari PA-C) PTSD (post-traumatic stress disorder) Bipolar disorder Gait abnormality Memory deficit Falls frequently History of drug abuse Anxiety and depression Elevated d-dimer Avery's paralysis Hemiparesis affecting left side as late effect of stroke HTN (hypertension) Family History Family History Other Unknown family medical history Social History Social History (Updated 07/08/24 @ 14:54 by Nery Ferrari PA-C) Social History: Lives with his mom and her boyfriend. Smoking packs per day: 1 Smoking cigarettes per day: 20.0 Years smoked: 36 Smoking pack-years: 36.00 Smoking status: Current every day smoker Tobacco type: cigarettes Additional smoking assessment comments: smoking since 5th grade Alcohol intake: never Substance use type: marijuana Do You Feel Safe in your Home?: Yes Lack of Transportation: YES Lack of Food: Never True Current Housing: I Have Housing Concerned About Future Housing: No Difficulty Paying Gas/Electric Bills: No Difficulty Paying for Meds: No Currently Unemployed: YES Education: High School Diploma/GED Difficulty w/ Childcare or Family Care: No Occupation/Education: unemployed Gender identity (if verbalized by the patient): Male Spiritual care concerns: No Meds Home Medications and Allergies Home Medications ?Medication ?Instructions ?Recorded ?Confirmed ?Type L.acidophilus-L.bulgar-B.bifid-S.thermoph 1 tab PO BID PRN Diarrhea #60 tabs 06/04/24 07/08/24 Rx 1 billion cell-250 mg tablet (Anjali-Bid) acetaminophen 325 mg tablet 650 mg (2 x 325 mg) PO Q4H PRN 06/04/24 07/08/24 Rx Mild Pain (1-3) Or Fever #0 tabs amlodipine 5 mg tablet (Norvasc) 5 mg PO DAILY #30 tabs 06/04/24 07/08/24 Rx apixaban 5 mg tablet (Eliquis) 5 mg PO BID #60 tabs 06/04/24 07/08/24 Rx aspirin 325 mg tablet,delayed 325 mg PO DAILY #30 tabs 06/04/24 07/08/24 Rx release divalproex 250 mg tablet,delayed 500 mg (2 x 250 mg) PO Q12H #60 06/04/24 07/08/24 Rx release (Depakote) tabs hydroxyzine HCl 25 mg tablet 25 mg PO HS #30 tabs 06/04/24 07/08/24 Rx lidocaine 4 % topical patch 2 patch transdermal DAILY #30 ea 06/04/24 07/08/24 Rx (Lidocaine Pain Relief) metoprolol tartrate 50 mg tablet 50 mg PO BID #60 tabs 06/04/24 07/08/24 Rx Allergies Allergy/AdvReac Type Severity Reaction Status Date / Time No Known Allergies Allergy Verified 07/08/24 10:26 Vital Signs Vital Signs - 24 hr 07/08/24 12:00 07/08/24 14:25 07/08/24 16:00 Temperature 98 F Pulse Rate 85 86 64 Respiratory Rate 16 Blood Pressure 131/69 Pulse Oximetry 97 Oxygen Delivery 07/08/24 20:00 07/08/24 21:31 07/09/24 00:00 Temperature 98.1 F Pulse Rate 98 64 67 Respiratory Rate 14 Blood Pressure 132/67 Pulse Oximetry 97 Oxygen Delivery 07/09/24 04:00 07/09/24 05:37 07/09/24 08:11 Temperature 97.2 F L Pulse Rate 54 L 54 L Respiratory Rate 14 Blood Pressure 155/77 H Pulse Oximetry 100 98 Oxygen Delivery Room Air 07/09/24 09:30 07/09/24 09:30 Temperature Pulse Rate 49 L Respiratory Rate Blood Pressure Pulse Oximetry Oxygen Delivery Room Air Results Labs 07/09/24 06:19 07/09/24 06:19 Labs: Short CBC 07/09/24 Range/Units 06:19 WBC 6.4 (4.5-10.0) K/mm3 Hgb 13.4 L (14.0-18.0) g/dL Hct 41.9 L (42.0-52.0) % Plt Count 303 (150-375) k/mm3 BMP 07/09/24 06:19 Sodium 138 Potassium 4.1 Chloride 108 H Carbon Dioxide 28 BUN 23 H Creatinine 1.10 Glucose 82 Calcium 8.7 Liver Function 07/09/24 Range/Units 06:19 Total Bilirubin 0.4 (0.2-1.3) mg/dL AST 17 (17-59) U/L ALT 11 (6-50) U/L Alkaline Phosphatase 43 (38-126) U/L Albumin 3.5 (3.5-5.1) g/dL
--- NOTE | 2024-07-09 14:26 | PC.NURSE ---
Patient called banjo repair person light stating he felt he was having a mental breakdown and tearful. This RN noted upon arrival to patient room patient to be very anxious that him moving to new room that patient's family that was coming to visit, wouldn't be able to find new room. This RN walked patient to new room. Patient's belongings moved to new room. This RN updated patient's sister of new location of room. Pt's belongings and call light within reach.
[2024-07-09] MEDS: METOPROLOL TARTRATE 50 MG TAB PO (17:43)
[2024-07-09] MEDS: hydrOXYzine HCL 25 MG TABLET PO (20:16)
[2024-07-10] VITALS (11 sets, daily range): BP systolic 124–157; BP diastolic 72–87; PULSE 54–75; RESP 12–18; TEMP 36.1–36.8; O2SAT 99–100
[2024-07-10 06:53] LABS: Hematocrit 44.7 % (42.0-52.0); Mean Corpuscular HGB Conc 31.3 g/dl (32-36); Mean Corpuscular Hemoglobin 30.3 pg (26-34); Mean Corpuscular Volume 96.8 fl (80-100); Mean Platelet Volume 9.5 fl (7.4-10.4); Platelet Count Result 304 k/mm3 (150-375); Red Blood Count 4.62 M/mm3 (4.6-6.20); Red Cell Distribution Width 13.3 % (11.5-14.5); White Blood Count 6.7 K/mm3 (4.5-10.0)
[2024-07-10 07:08] LABS: Alanine Aminotransferase 11 U/L (6-50); Albumin Level 3.4 g/dL (3.5-5.1); Alkaline Phosphatase 41 U/L (38-126); Anion Gap -1 mmol/L (4-12); Aspartate Amino Transferase 19 U/L (17-59); Bilirubin,Total 0.4 mg/dL (0.2-1.3); Blood Urea Nitrogen 22 mg/dL (9-20); Calcium 8.6 mg/dL (8.4-10.2); Carbon Dioxide 29 mmol/L (22-30); Chloride 110 mmol/L (98-107); Estimated CRCL calculation 75 ml/min; Estimated Glomerular Filt Rate > 60; Glucose 89 mg/dL (65-110); Potassium 4.4 mmol/L (3.4-5.0); Sodium 138 mmol/L (137-145)
--- NOTE | 2024-07-10 09:00 | PM.IMPN ---
Progress Note: A&P Assessment and Plan (1) Word finding difficulty: Code(s): R47.89 - Other speech disturbances Status: Acute Assessment and Plan: Patient notes that 2 days ago he developed difficulty with word finding and garbling. This continued to worsen which prompted him to come to the hospital for further evaluation. He denies weakness, facial droop, slurred speech, increased confusion and seizure like activity. Started on atorvastatin 40 mg daily Continue Eliquis 5 mg BID and ASA Cholesterol panel WNL EKG sinus rhythm Head/neck CTA: No large vessel occlusion or stenosis. No significant vascular abnormality seen. Probable chronic infarcts in the right temporal lobe and right frontal lobe. Probable left posterior fossa arachnoid cyst. MRI: Multiple small cortical with laminar necrosis in the right cerebral hemisphere in the right middle cerebral artery vascular distribution. No evident acute intracranial process. Echocardiogram with bubble study ordered Monitor blood glucose Telemetry monitoring Monitor CBC, CMP, magnesium, troponin, and lipid profile Monitor blood pressure Neurology consulted, appreciate assistance and recommendations 07/10- hiv still pending, urine drug screen is negative stable otherwise (2) Seizure: Code(s): R56.9 - Unspecified convulsions Status: Acute Assessment and Plan: Last seizure in april following a CVA. - Denies any seizure like activity - Continue Depakote 500 mg BID - Depakote level ordered - Monitor will need to order repeated depakote level 07/11 (3) Bipolar disorder: Code(s): F31.9 - Bipolar disorder, unspecified Status: Acute Assessment and Plan: Since being discharged from the ICU at [facility] he reports active hallucinations where he sees his loved ones lying in bed with him. He attempts to talk to them but they do not talk back. He denies auditory hallucinations. He notes that he has been feeling a demonic presence around his room for the past few days. Prior suicide attempt in 2011 resulting in a admission to a psychiatric hospital in [place]. He was again hospitalized at the same facility for suicidal ideations in 2012. He denies current suicidal/homicidal ideations. - B12 and folate - Vit D - RPR - HIV - GC/Trich Urine - UDS - Hepatitis panel - Continue Depakote 500 mg BID, Depakote level ordered - Consult care coordination for mini mental and to obtain follow up with psych/counselor - Consult made to psychology Dr. Campuzano, appreciate recommendations 07/[address] Campuzano yesterday will need to establish with psych and follow (4) HTN (hypertension): Code(s): I10 - Essential (primary) hypertension Status: Acute Assessment and Plan: Chronic, however patient has been normotensive since admission despite antihypertensives being held - Holding amlodipine 5 mg daily and metoprolol 50 mg BID - Resume as appropriate - Monitor (5) HLD (hyperlipidemia): Code(s): E78.5 - Hyperlipidemia, unspecified Status: Acute Assessment and Plan: Started on atorvastatin 40 mg daily Time Spent With Patient Time with patient: Greater than 35 minutes Subjective Date/time seen: 07/10/24 09:00 Interval history: difficulty forming sentences Narrative retrieved from H/P: 48 year old male with past medical history of hypertension, hyperlipidemia, prior CVA (04/2024), seizures, PTSD and bipolar disorder presents to the hospital for difficulty with word finding. He states that about 2 days ago he noticed he was having difficulty speaking, unable to form proper sentences. The difficulty started to increase and he noticed garbled speech which prompted him to go to the hospital for fear he was having another stroke. He originally went to [facility], [place] where the patient states they checked his blood pressure, did no imaging and discharged him from the ED. He then came to [place] for further workup. The patient denies any weakness, changes in gait, facial droop, increased confusion, or seizure like activity. Per chart review, patient was recently admitted to [facility] on 05/05 with uncontrolled HTN and seizure like activity. During his admission patient required intubation as he was unable to protect his airway. CT head showed acute infarct within right frontal lobe and a possible chronic infarct in the anterior right temporal lobe. CTA head neck showed nonocclusive filling defect within right terminal ICA and proximal MCA M1 division. Patient underwent cerebral angiogram with plans for thrombectomy upon admit by IR, but apparently no clot was found. Patient underwent a cEEG with abnormal reading. He was later extubated and started on Depakote. Patient likely started on Depakote instead of Keppra to better control his bipolar. Per patient he has not been on antipsychotic medications prior to Depakote for his bipolar. Since being discharged from the ICU at [facility] he reports active hallucinations where he sees his loved ones lying in bed with him. He attempts to talk to them but they do not talk back. He denies auditory hallucinations. He notes that he has been feeling a demonic presence around his room for the past few days. He denies any active hallucinations during assessment. Patient had a prior suicide attempt in 2011 resulting in a admission to a psychiatric hospital in [place]. He was again hospitalized at the same facility for suicidal ideations in 2012. He does not further elaborate on these occurrences. He denies current suicidal/homicidal ideations. Patient does not have a psychiatrist or a councillor. He has no other complaints denying chest pain, shortness of breath, palpitations, nausea/vomiting and abdominal pain . Consult made to psychology Dr. Campuzano who plans to see patient today, 1218. Per Dr. Campuzano since the patient is having active visual hallucination, but not auditory this may be more medical delirium. Labs were ordered as he requested and care coordination was consulted for a mini mental. ED workup: CBC unremarkable with WBC 7.1, H/H 14.1/43.2, PLT 313. Chemistry with Na138, K 4.6, BUN/Cr 27/1. Lactic 1.7. Troponin negative. UA nonconcerning for infection. Chest XR: No acute cardiopulmonary disease. CT head/neck: no large vessel occlusion or stenosis, No significant vascular abnormality seen, Probable chronic infarcts in the right temporal lobe and right frontal lobe, Probable left posterior fossa arachnoid cyst. 07/09- assuming care- DR Campuzano is to see pt today. POt is quite, calm 07/10 no acute events overnight. Discussed about importance of establishing with PCP and psych. Review of Systems Review of Systems: All systems reviewed & are unremarkable except as noted in HPI and below Exam Narrative: General: male in no acute respiratory distress who is nontoxic appearing, lying semi recumbent in bed. HEENT: Normocephalic. Atraumatic. Pupils equal round reactive to light. Extraocular movement intact. Sclera clear and anicteric. No facial asymmetry. Neck: Neck was supple. No dominant adenopathy, thyromegaly or masses. Chest: Lungs are clear to auscultation bilaterally. No wheezes or crackles. CV: Heart was regular rate and rhythm. S1/S2. No murmurs, gallops, or rubs. Abd: Abdomen was soft. Nontender. Nondistended. Positive bowel sounds. No organomegaly or masses. Ext: No clubbing, cyanosis, or edema. 2+ DP pulses bilaterally. Neuro: Patient is alert and oriented x4. Strength is 5/5 in both upper and lower extremities pushes and pulls. Cranial nerves 2-12 are intact. Speech is clear. Psych: Tearful at times. Patient is pleasant and cooperative. Skin: Warm and dry. No rashes noted. Objective Data Vital Signs Vital Signs: Vital Signs - 24 hr 07/09/24 09:30 07/09/24 09:30 07/09/24 12:00 Temperature Pulse Rate 49 L 57 L Respiratory Rate Blood Pressure Pulse Oximetry Oxygen Delivery Room Air 07/09/24 16:00 07/09/24 17:05 07/09/24 17:43 Temperature 98.4 F Pulse Rate 69 73 72 Respiratory Rate 17 Blood Pressure 131/84 Pulse Oximetry 98 Oxygen Delivery 07/09/24 20:00 07/09/24 21:18 07/10/24 00:00 Temperature 98.1 F Pulse Rate 71 68 58 L Respiratory Rate 18 Blood Pressure 133/78 Pulse Oximetry 100 Oxygen Delivery 07/10/24 04:00 07/10/24 06:00 Temperature 98.2 F Pulse Rate 54 L 62 Respiratory Rate 18 Blood Pressure 124/72 Pulse Oximetry 100 Oxygen Delivery Intake/Output Intake/Output: Intake & Output 07/07/24 07/08/24 07/09/24 07/10/24 23:59 23:59 23:59 23:59 Intake Total 1640 2090 550 Output Total 400 Balance 1240 2090 550 Meds/Results Medications: Active Medications Generic Name Dose Route Start Last Admin Trade Name Freq PRN Reason Stop Dose Admin Acetaminophen 650 mg 07/09/24 15:25 Acetaminophen 325 Mg Tablet PO Q4H PRN Mild Pain (1-3) Or Fever Amlodipine Besylate 5 mg 07/10/24 09:00 Amlodipine Besylate 5 Mg Tablet PO DAILY [facility] Apixaban 5 mg 07/08/24 09:00 07/09/24 20:16 Apixaban 5 Mg Tablet PO 5 mg Q12HR [facility] Administration Aspirin 81 mg 07/10/24 09:00 Aspirin 81 Mg Enteric Tablet PO QAM [facility] Atorvastatin Calcium 40 mg 07/08/24 09:00 07/09/24 09:31 Atorvastatin 40 Mg Tablet PO 40 mg DAILY [facility] Administration Divalproex Sodium 500 mg 07/08/24 09:00 07/09/24 20:[address] 250 Mg Tabec PO 500 mg Q12HR [facility] Administration Hydroxyzine HCl 25 mg 07/08/24 21:00 07/09/24 20:16 Hydroxyzine Hcl 25 Mg Tablet PO 25 mg HS [facility] Administration Metoprolol Tartrate 50 mg 07/09/24 17:00 07/09/24 17:43 Metoprolol Tartrate 50 Mg Tab PO 50 mg BID [facility] Administration Miscellaneous Information 1 each 07/10/24 00:01 Lidocaine 4% Patch Is Nonform; Ok To Change To 5% Patch? Also Need Application Location XX 08/09/24 00:00 CLARIFY [facility] Non-Formulary Medication 2 patch 07/10/24 09:00 Lidocaine [Lidocaine Pain Relief] TRANSDERM 08/09/24 08:59 DAILY [facility] Perflutren Lipid Microsphere 0 ml 07/08/24 07:07 Perflutren Lipid Microspheres 1.5 Ml Vial Diluted To 10 Ml Total Volume IV PUSH 07/11/24 07:07 ONCE PRN adequate visualization Protocol Radiology Results: ITS Impressions Chest X-Ray 07/07/24 23:10 IMPRESSION: 1. No acute cardiopulmonary disease. Head/Neck CTA 07/08/24 05:37 Impression: No large vessel occlusion or stenosis. No significant vascular abnormality seen. Probable chronic infarcts in the right temporal lobe and right frontal lobe. Probable left posterior fossa arachnoid cyst. Brain MRI 07/08/24 12:30 IMPRESSION: 1. Multiple small cortical with laminar necrosis in the right cerebral hemisphere in the right middle cerebral artery vascular distribution. No evident acute intracranial process. Labs Labs: Laboratory Results - last 24 hr 07/10/24 06:42 WBC 6.7 RBC 4.62 Hgb 14.0 Hct 44.7 MCV 96.8 MCH 30.3 MCHC 31.3 L RDW 13.3 Plt Count 304 MPV 9.5 Sodium 138 Potassium 4.4 Chloride 110 H Carbon Dioxide 29 Anion Gap -1 L BUN 22 H Creatinine 1.10 Estim Creat Clear Calc 75 Estimated GFR > 60 Glucose 89 Calcium 8.6 Total Bilirubin 0.4 AST 19 ALT 11 Alkaline Phosphatase 41 Total Protein 6.0 L Albumin 3.4 L Quality VTE Prophylaxis VTE prophylaxis: pharmacologic ordered
[2024-07-10] MEDS: ATORVASTATIN 40 MG TABLET PO (09:59)
[2024-07-10] MEDS: DIVALPROEX SODIUM DR 250 MG TABEC 500 MG PO ×2 (09:59→20:26)
[2024-07-10] MEDS: amLODIPine BESYLATE 5 MG TABLET PO (09:59)
[2024-07-10] MEDS: METOPROLOL TARTRATE 50 MG TAB PO ×2 (09:59→17:32)
[2024-07-10] MEDS: ASPIRIN 81 MG ENTERIC TABLET PO (09:59)
[2024-07-10] MEDS: APIXABAN 5 MG TABLET PO ×2 (09:59→20:27)
--- NOTE | 2024-07-10 11:55 | WPDNEUROPN ---
Progress Note: A&P Assessment and Plan (1) Seizure: Code(s): R56.9 - Unspecified convulsions Status: Acute (2) Right-sided cerebrovascular accident (CVA): Code(s): I63.9 - Cerebral infarction, unspecified Status: Acute (3) Word finding difficulty: Code(s): R47.89 - Other speech disturbances Status: Acute (4) Bipolar disorder: Code(s): F31.9 - Bipolar disorder, unspecified Status: Acute (5) History of drug abuse: Code(s): F19.11 - Other psychoactive substance abuse, in remission Status: Acute Plan I do not find any focal deficit. He has not had any stroke seizure-like spells. He is currently on Depakote 500 mg twice a day. Sometimes Depakote is preferred by psychiatrist as a mood stabilizer in addition to his quality of being anticonvulsant and I certainly do not have any objection to this. Keppra can sometimes lead to combativeness in some cases. He is also on aspirin 81 mg a day atorvastatin 40 mg a day and Eliquis mg twice a day. He may continue the same treatment from a neurologic point of view for now. Subjective Date/time seen: 07/10/24 11:55 Interval history: The patient carries diagnosis of previous stroke and seizure disorder and bipolar disorder. The time when I saw him this morning he has a drowsy but fairly arousable and does seem to be cooperative. He denies any symptoms. He has not had any seizure-like activity reported. Current records and medications were reviewed. Apparently he has had some word-finding difficulty but he was able to converse with me without much problem. I noted that he had been seen by psychiatrist who did not feel that he requires any anti psychotic medications. MRI of the brain has shown a right CVA but no new strokes were identified. Last LDL was 54 and serum B12 level was normal. Review of Systems Review of Systems: All systems reviewed & are unremarkable except as noted in HPI and below Exam Narrative: Fully conscious alert oriented to self time place and person. Speech is fluent and articulate. No aphasia or dysarthria. Examination head and neck was unremarkable. No evidence of external trauma. No nuchal rigidity. Cranial nerves injury testing intact. Motor system normal power and tone in both upper and lower limbs. Sensory examination intact . No involuntary movements are seen at this time. Objective Data Vital Signs Vital Signs: Vital Signs - 24 hr 07/09/24 12:00 07/09/24 16:00 07/09/24 17:05 Temperature 98.4 F Pulse Rate 57 L 69 73 Respiratory Rate 17 Blood Pressure 131/84 Pulse Oximetry 98 Oxygen Delivery 07/09/24 17:43 07/09/24 20:00 07/09/24 21:18 Temperature 98.1 F Pulse Rate 72 71 68 Respiratory Rate 18 Blood Pressure 133/78 Pulse Oximetry 100 Oxygen Delivery 07/10/24 00:00 07/10/24 04:00 07/10/24 06:00 Temperature 98.2 F Pulse Rate 58 L 54 L 62 Respiratory Rate 18 Blood Pressure 124/72 Pulse Oximetry 100 Oxygen Delivery 07/10/24 09:59 07/10/24 10:00 Temperature Pulse Rate 65 Respiratory Rate Blood Pressure Pulse Oximetry Oxygen Delivery Room Air Intake/Output Intake/Output: Intake & Output 07/07/24 07/08/24 07/09/24 07/10/24 23:59 23:59 23:59 23:59 Intake Total 1640 2090 910 Output Total 400 Balance 1240 2090 910 Meds/Results Medications: Active Medications Generic Name Dose Route Start Last Admin Trade Name Freq PRN Reason Stop Dose Admin Acetaminophen 650 mg 07/09/24 15:25 Acetaminophen 325 Mg Tablet PO Q4H PRN Mild Pain (1-3) Or Fever Amlodipine Besylate 5 mg 07/10/24 09:00 07/10/24 09:59 Amlodipine Besylate 5 Mg Tablet PO 5 mg DAILY [facility] Administration Apixaban 5 mg 07/08/24 09:00 07/10/24 09:59 Apixaban 5 Mg Tablet PO 5 mg Q12HR [facility] Administration Aspirin 81 mg 07/10/24 09:00 07/10/24 09:59 Aspirin 81 Mg Enteric Tablet PO 81 mg QAM [facility] Administration Atorvastatin Calcium 40 mg 07/08/24 09:00 07/10/24 09:59 Atorvastatin 40 Mg Tablet PO 40 mg DAILY [facility] Administration Divalproex Sodium 500 mg 07/08/24 09:00 07/10/24 09:[address] 250 Mg Tabec PO 500 mg Q12HR [facility] Administration Hydroxyzine HCl 25 mg 07/08/24 21:00 07/09/24 20:16 Hydroxyzine Hcl 25 Mg Tablet PO 25 mg HS [facility] Administration Metoprolol Tartrate 50 mg 07/09/24 17:00 07/10/24 09:59 Metoprolol Tartrate 50 Mg Tab PO 50 mg BID [facility] Administration Miscellaneous Information 1 each 07/10/24 00:01 Lidocaine 4% Patch Is Nonform; Ok To Change To 5% Patch? Also Need Application Location XX 08/09/24 00:00 CLARIFY [facility] Non-Formulary Medication 2 patch 07/10/24 09:00 Lidocaine [Lidocaine Pain Relief] TRANSDERM 08/09/24 08:59 DAILY [facility] Perflutren Lipid Microsphere 0 ml 07/08/24 07:07 Perflutren Lipid Microspheres 1.5 Ml Vial Diluted To 10 Ml Total Volume IV PUSH 07/11/24 07:07 ONCE PRN adequate visualization Protocol Radiology Results: ITS Impressions Chest X-Ray 07/07/24 23:10 IMPRESSION: 1. No acute cardiopulmonary disease. Head/Neck CTA 07/08/24 05:37 Impression: No large vessel occlusion or stenosis. No significant vascular abnormality seen. Probable chronic infarcts in the right temporal lobe and right frontal lobe. Probable left posterior fossa arachnoid cyst. Brain MRI 07/08/24 12:30 IMPRESSION: 1. Multiple small cortical with laminar necrosis in the right cerebral hemisphere in the right middle cerebral artery vascular distribution. No evident acute intracranial process. Labs Labs: Laboratory Results - last 24 hr 07/10/24 06:42 WBC 6.7 RBC 4.62 Hgb 14.0 Hct 44.7 MCV 96.8 MCH 30.3 MCHC 31.3 L RDW 13.3 Plt Count 304 MPV 9.5 Sodium 138 Potassium 4.4 Chloride 110 H Carbon Dioxide 29 Anion Gap -1 L BUN 22 H Creatinine 1.10 Estim Creat Clear Calc 75 Estimated GFR > 60 Glucose 89 Calcium 8.6 Total Bilirubin 0.4 AST 19 ALT 11 Alkaline Phosphatase 41 Total Protein 6.0 L Albumin 3.4 L
[2024-07-10] MEDS: hydrOXYzine HCL 25 MG TABLET PO (20:27)
[2024-07-11] VITALS: PULSE 72
[2024-07-11 04:00] VITALS: PULSE 53
[2024-07-11 05:57] VITALS: BP 130/63; PULSE 52; RESP 12; TEMP 36; O2SAT 100
[2024-07-11 07:34] LABS: Hematocrit 42.8 % (42.0-52.0); Hemoglobin 13.8 g/dL (14.0-18.0); Mean Corpuscular HGB Conc 32.2 g/dl (32-36); Mean Corpuscular Hemoglobin 29.9 pg (26-34); Mean Corpuscular Volume 92.8 fl (80-100); Mean Platelet Volume 9.9 fl (7.4-10.4); Platelet Count Result 316 k/mm3 (150-375); Red Blood Count 4.61 M/mm3 (4.6-6.20); Red Cell Distribution Width 13.2 % (11.5-14.5); White Blood Count 6.7 K/mm3 (4.5-10.0)
[2024-07-11 07:42] LABS: Alanine Aminotransferase 10 U/L (6-50); Albumin Level 3.4 g/dL (3.5-5.1); Alkaline Phosphatase 41 U/L (38-126); Anion Gap 2 mmol/L (4-12); Aspartate Amino Transferase 18 U/L (17-59); Bilirubin,Total 0.4 mg/dL (0.2-1.3); Blood Urea Nitrogen 22 mg/dL (9-20); Calcium 8.6 mg/dL (8.4-10.2); Carbon Dioxide 33 mmol/L (22-30); Chloride 107 mmol/L (98-107); Estimated CRCL calculation 75 ml/min; Estimated Glomerular Filt Rate > 60; Glucose 86 mg/dL (65-110); Potassium 4.7 mmol/L (3.4-5.0); Sodium 142 mmol/L (137-145)
[2024-07-11 08:00] VITALS: PULSE 50
[2024-07-11 09:52] VITALS: PULSE 60
[2024-07-11] MEDS: ATORVASTATIN 40 MG TABLET PO (09:52)
[2024-07-11] MEDS: amLODIPine BESYLATE 5 MG TABLET PO (09:52)
[2024-07-11] MEDS: DIVALPROEX SODIUM DR 250 MG TABEC 500 MG PO (09:52)
[2024-07-11] MEDS: ASPIRIN 81 MG ENTERIC TABLET PO (09:52)
[2024-07-11] MEDS: APIXABAN 5 MG TABLET PO (09:52)
[2024-07-11] MEDS: METOPROLOL TARTRATE 50 MG TAB PO (09:52)
[2024-07-11 10:28] LABS: HIV DNA PCR (Qual) Not Detected (Not Detected)
[2024-07-11 12:00] VITALS: PULSE 52
[2024-07-11 12:10] LABS: Valproic Acid 70.2 ug/mL (50-120)
--- NOTE | 2024-07-11 14:53 | P.DS_ITS ---
DS: Admitting Diagnosis Discharge Date 07/11 Admitting Diagnosis difficulties with finding words DS: Discharge Diagnosis Discharge Diagnosis (1) Word finding difficulty: Code(s): R47.89 - Other speech disturbances Status: Acute (2) Seizure: Code(s): R56.9 - Unspecified convulsions Status: Acute (3) Bipolar disorder: Code(s): F31.9 - Bipolar disorder, unspecified Status: Acute (4) HTN (hypertension): Code(s): I10 - Essential (primary) hypertension Status: Acute (5) HLD (hyperlipidemia): Code(s): E78.5 - Hyperlipidemia, unspecified Status: Acute DS: Summary Hospital Course Hospital Course: difficulty forming sentences Narrative retrieved from H/P: 48 year old male with past medical history of hypertension, hyperlipidemia, prior CVA (04/2024), seizures, PTSD and bipolar disorder presents to the hospital for difficulty with word finding. He states that about 2 days ago he noticed he was having difficulty speaking, unable to form proper sentences. The difficulty started to increase and he noticed garbled speech which prompted him to go to the hospital for fear he was having another stroke. He originally went to [facility] where the patient states they checked his blood pressure, did no imaging and discharged him from the ED. He then came to [place] for further workup. The patient denies any weakness, changes in gait, facial droop, increased confusion, or seizure like activity. Per chart review, patient was recently admitted to [facility] on 05/05 with uncontrolled HTN and seizure like acti vity. During his admission patient required intubation as he was unable to protect his airway. CT head showed acute infarct within right frontal lobe and a possible chronic infarct in the anterior right temporal lobe. CTA head neck showed nonocclusive filling defect within right terminal ICA and proximal MCA M1 division. Patient underwent cerebral angiogram with plans for thrombectomy upon admit by IR, but apparently no clot was found. Patient underwent a cEEG with abnormal reading. He was later extubated and started on Depakote. Patient likely started on Depakote instead of Keppra to better control his bipolar. Per patient he has not been on antipsychotic medications prior to Depakote for his bipolar. Since being discharged from the ICU at [facility] he reports active hallucinations where he sees his loved ones lying in bed with him. He attempts to talk to them but they do not talk back. He denies auditory hallucinations. He notes that he has been feeling a demonic presence around his room for the past few days. He denies any active hallucinations during assessment. Patient had a prior suicide attempt in 2011 resulting in a admission to a psychiatric hospital in [place]. He was again hospitalized at the same facility for suicidal ideations in 2012. He does not further elaborate on these occurrences. He denies current suicidal/homicidal ideations. Patient does not have a psychiatrist or a councillor. He has no other complaints denying chest pain, shortness of breath, palpitations, nausea/vomiting and abdominal pain . He was seen by psychiatrist, DR Toney, who did not feel that he required any anti psychotic medications. MRI of the brain has shown a right CVA but no new strokes were identified. Last LDL was 54 and serum B12 level was normal. Per psych recommendation- we will start him on Sertraline (Zoloft) 50 mg po q am. His depakote level was rechecked and stable. He continues to deny any suicidal ideation. Pt needs a close f/u with PCP- has list to get established as well as psychiatrist. ASpirin 325 mg was stopped, ok to take 81 mg asa Status at Discharge Functional status at discharge: independent ambulation Overall status at discharge: patient is progressing back to baseline Time Spent with Patient Time attestation: Total time spent providing and/or coordinating discharge services: Time spent: Greater than 30 minutes Exam Narrative: General: male in no acute respiratory distress who is nontoxic appearing, lying semi recumbent in bed. HEENT: Normocephalic. Atraumatic. Pupils equal round reactive to light. Extraocular movement intact. Sclera clear and anicteric. No facial asymmetry. Neck: Neck was supple. No dominant adenopathy, thyromegaly or masses. Chest: Lungs are clear to auscultation bilaterally. No wheezes or crackles. CV: Heart was regular rate and rhythm. S1/S2. No murmurs, gallops, or rubs. Abd: Abdomen was soft. Nontender. Nondistended. Positive bowel sounds. No organomegaly or masses. Ext: No clubbing, cyanosis, or edema. 2+ DP pulses bilaterally. Neuro: Patient is alert and oriented x4. Strength is 5/5 in both upper and lower extremities pushes and pulls. Cranial nerves 2-12 are intact. Speech is clear. Psych: Tearful at times. Patient is pleasant and cooperative. Skin: Warm and dry. No rashes noted. Const: General: comfortable DS: Data Data Completed and Pending Labs on day of discharge: Labs from last 24 hours 07/11/24 07/11/24 07/08/24 11:20 06:48 07:44 WBC 6.7 RBC 4.61 Hgb 13.8 L Hct 42.8 MCV 92.8 MCH 29.9 MCHC 32.2 RDW 13.2 Plt Count 316 MPV 9.9 Sodium 142 Potassium 4.7 Chloride 107 Carbon Dioxide 33 H Anion Gap 2 L BUN 22 H Creatinine 1.10 Estim Creat Clear Calc 75 Estimated GFR > 60 Glucose 86 Calcium 8.6 Total Bilirubin 0.4 AST 18 ALT 10 Alkaline Phosphatase 41 Total Protein 6.0 L Albumin 3.4 L Valproic Acid 70.2 HIV DNA Qual (PCR) Not detected Discharge Plan Discharge Attending physician on discharge: Andrey Monson Consulting providers: Byron Rush; Gildardo Toney Discharging Clinician: Heidi Chavez Activity: may shower Diet: as tolerated and heart healthy Discharge Instructions: Patient to follow up with [facility] for Primary care and psychiatry services. Please contact the following location options to make an appointment. [address] [place] [address]?[place],?[place]?[id number] Main: [phone]. If you can't get an appointment timely with them, can also try [address] [address]?[facility],?[place]?[address] Main: [phone]. Patient Instructions: Apixaban (By mouth), Pain Management (DC) Patient Language: Malay Discharge Medications: New atorvastatin 40 mg Tablet 40 mg PO DAILY Qty: 90 0RF aspirin 81 mg Tablet,Delayed Release (Dr/Ec) 81 mg PO QAM Qty: 90 0RF sertraline [Zoloft] 50 mg tablet 50 mg PO DAILY Qty: 90 0RF Continued acetaminophen 325 mg Tablet 650 mg PO Q4H PRN (Reason: Mild Pain (1-3) Or Fever) Qty: 0 0RF lidocaine [Lidocaine Pain Relief] 4 % Adhesive Patch,Medicated 2 patch transdermal DAILY Qty: 30 0RF divalproex [Depakote] 250 mg Tablet,Delayed Release (Dr/Ec) 500 mg PO Q12H Qty: 60 0RF amlodipine [Norvasc] 5 mg Tablet 5 mg PO DAILY Qty: 30 0RF metoprolol tartrate 50 mg Tablet 50 mg PO BID Qty: 60 0RF hydroxyzine HCl 25 mg Tablet 25 mg PO HS Qty: 30 0RF Anjali-Bid 1 billion cell- 250 mg Tablet 1 tab PO BID PRN (Reason: Diarrhea) Qty: 60 0RF Eliquis 5 mg Tablet 5 mg PO BID Qty: 60 0RF Discontinued aspirin 325 mg Tablet,Delayed Release (Dr/Ec) 325 mg PO DAILY Qty: 30 0RF Date of admission: 07/10/24 10:28 Primary Care Provider: UNKNOWN,DOCTOR Admitting Provider: Eunice Allen V. Attending physician on admission: Eunice Allen V. Condition: Stable Quality VTE Prophylaxis VTE prophylaxis: pharmacologic ordered
== END 2024-07-11 16:30 | disposition home or self-care (01) | DRG 92 ==
LOC: ANHED 07-08 03:08 → ANH3MEDSUR 07-08 03:21
PROVIDERS: Student in an Organized Health Care Education/Training Program; Admitting Provider Internal Medicine; Emergency Provider Emergency Medicine; Visit Provider Nurse Practitioner
DX: R47.89 Other speech disturbances (principal); I69.354 Hemiplegia and hemiparesis following cerebral infarction affecting left non-dominant side; R44.1 Visual hallucinations; R56.9 Unspecified convulsions; R26.9 Unspecified abnormalities of gait and mobility; R29.6 Repeated falls; I10 Essential (primary) hypertension; F41.9 Anxiety disorder, unspecified; F17.210 Nicotine dependence, cigarettes, uncomplicated; F43.10 Post-traumatic stress disorder, unspecified; F31.9 Bipolar disorder, unspecified; Z79.01 Long term (current) use of anticoagulants
CPT/HCPCS: 36415; 70496; 70498; 70553; 71045; 80053; 80074; 80164; 80307; 81003; 82306; 82465; 82607; 82746; 83605; 83718; 83721; 83735; 84484; 85025; 85027; 85610; 85730; 86592; 87491; 87535; 87591; 87661; 93005; 93306; 96374; 96375; 99285; A9270; A9577; G0378; J2060; Q9967